=== PATIENT | male | born 1935 | race Caucasian/White ===

== ENCOUNTER 2019-09-07 09:02 | Outpatient (RCR) | payer MEDICARE, SELFPAY ==
[2019-09-07] MEDS: denosumab 120 mg SDV SUBCUT (10:11)
--- NOTE | 2019-09-07 10:15 | ONC FU_ITS ---
[facility] Patient Note Patient: Robert Gonzalez Unit #: [id number]: 1935 Dictated By: Mesfin SandovalDate of Visit: Sep 07, 2019 Onc MED Follow-Up/Prog Note Chief Complaint: Metastatic Prostrate cancer History of Present Illness: Mr. Gonzalez is a 84-year-old gentleman with recent history of urinary retention due to prostatomegaly. He required Mann catheters and further investigation- including TURSP done on 09/16/2018 confirmed prostatic adenocarcinoma [place] score 4+4, 100% involvement. CT scan of abdomen pelvis done outside at [facility] showed diffuse retroperitoneal lymphadenopathy, sclerotic bony changes, mediastinal lymphadenopathy consistent with metastatic disease and his PSA was more than 5000. As per patient he has 2 brothers with prostate cancer. He was evaluated by Dr. Maldonado in the past and underwent prostate biopsy many years ago and it was normal. Mr Gonzalez was started on bicalutamide 50 mg daily on on 09/16/2018. And also start on Flomax. He started on Zoladex and monthly Xgeva on 10/05/2018. He is tolerating ADT with Casodex/Zoladex and monthly Xgeva well. Mr. Gonzalez is here today for follow-up. He is due for monthly Xgeva. He states overall he is feeling much better than when he was here in July. He has started on a new medicine for his feet that is working wonders . He states he can walk now and has good energy. He denies any pain. He did have pneumonia after his visit here in July but that has been treated he states he is breathing good right now. He states he is always had pneumonia or bronchitis this time a year but feels good currently. His breathing is normal for him. He denies any productive cough. He had no fever or chills. He states his bowels and urination are normal for him. He denies any leg cramps or palpitations. He denies any anginal chest pain as well. His ECOG is 1. He denies any side effects from the Xgeva. Past Medical History: Chronic obstructive pulmonary disease Emphysema Heart failure History of adenomatous colon polyp Past Surgical History: Appendectomy Cataract excision Colonoscopy TRUSP Allergies: No Known Allergies. Medications: Acetaminophen 2 Tablet (of 325 mg) Oral b.i.d. PRN Albuterol Sulfate 1 puff(s) (of 108 (90 base) mcg/act) Aerosol Powder, Breath Activated Inhalation four times a day Bicalutamide 1 Tablet (of 50 mg) Oral daily Flonase 2 spray(s) (of 50 mcg/act) Suspension Nasal b.i.d. Latanoprost 1 drop(s) (of 0.005 %) Solution Ophthalmic daily prostate rye 1 Tablet daily Selenium 1 Capsule (of 200 mcg) Oral daily Tamsulosin HCl 1 Capsule (of 0.4 mg) Oral daily TraMADol HCl 1 Tablet (of 50 mg) Oral four times a day Voltaren 1 Tablet (of 75 mg) Transdermal b.i.d. sb 1 Capsule (of 50 mg) daily Family History: Mr. Gonzalez's mother at age 75: myocardial infarction. Mr. Gonzalez's father at age 91. Social History: Mr. Gonzalez is and he is retired. Mr. Gonzalez has never smoked. He has no history of drinking. Review Of Symptoms: Constitutional Denies fevers, chills, night sweats, excessive fatigue or weight loss. Allergic/Immunologic No reactions. Eyes Denies significant visual changes. No diplopia. No amaurosis. ENMT Denies changes in hearing, sore throat, mouth sores, difficulty or changes in swallowing ability, and/or sinus drainage. Endocrine No diabetes, thyroid disease or hormone replacement. Denies hot flashes or night sweats. Hematologic/Lymphatic Denies easy bruising or bleeding. The patient denies any tender or palpable lymph nodes. Respiratory Denies dyspnea on exertion, chest pain, cough or hemoptysis. Denies orthopnea. Cardiovascular Denies anginal chest pain, palpitations or orthopnea. Gastrointestinal Denies nausea, vomiting, diarrhea, GI bleeding, or constipation. Denies change in bowel habits and/or stool color, no heartburn or early satiety. Genitourinary (M) Denies hematuria, dysuria, increased frequency, urgency, hesitancy or incontinence. Musculoskeletal Denies joint pain, swelling or redness. No decreased range of motion. Integumentary Denies chronic rashes, inflammation, ulcerations or skin changes. Neurologic Denies headache, blurred vision, and no areas of focal weakness or numbness. Normal gait. No sensory problems. Psychiatric Denies insomnia, depression, sabina or mood swings. Vital Signs: Performed on Sep 07, 2019 09:32 Height - 69.00 in Weight - 172.4 lbs (HIGH) BSA - 1.94 sq.m BMI - 25.46 Temperature - 97.9 F (LOW) Pulse - 64 /min Respiration - 24 /min BP - 140/67 mm(hg) O2 Sat - 96 % Pain - 0,1 - No physically strenuous activity, but ambulatory and able to carry out light or sedentary work (e.g. office work, light house work). (ECOG) Physical Examination: Constitutional Alert, oriented, no acute distress. Skin pink, warm and dry. Head Normocephalic; atraumatic. Eyes Conjunctivae and sclerae are clear and without icterus. Pupils are reactive and equal. Neck Supple without masses or thyromegaly. No jugular venous distension. Hematologic/Lymphatic No petechiae or purpura. No tender or palpable lymph nodes in the cervical or supraclavicular areas. Respiratory Lungs are clear to auscultation without rhonchi or wheezing. Cardiovascular Regular rate and rhythm of heart without murmurs,clicks, gallops or rubs. Abdomen Non-tender, non-distended, no masses or ascites. Back/Spine Non-tender to palpation. Extremities No visible deformities, no cyanosis, clubbing or edema. Musculoskeletal No tenderness or swelling, normal range of motion without obvious weakness. Integumentary No rashes or lesions. Neurologic No sensory or motor deficits, normal cerebellar function, normal gait. Psychiatric Alert and oriented times three. Coherent speech. Verbalizes understanding of our discussions today. Laboratory:Test performed on Sep 04, 2019 10:36 Glucose 82 mg/dL BUN 17 mg/dL Creatinine 0.78 mg/dL Cr Clearance (Est) 76.17 mL/min Sodium 139 mmol/L Potassium 4.5 mmol/L Chloride 106 mmol/L CO2 25 mmol/L Calcium 7.9 mg/dL Protein, Total 6.8 g/dL Albumin 3.9 g/dL Globulin 2.9 g/dL A/G Ratio 1.3 Absolute Value Bilirubin, Total 0.4 mg/dL Alkaline Phosphatase 141 IU/L AST (SGOT) 14 IU/L ALT (SGPT) 17 IU/L PSA 395.0 ng/mL Test performed on Aug 07, 2019 09:50 WBC 5.4 10 3/uL RBC 4.59 10 6/uL HGB 13.1 g/dL HCT 41.6 % MCV 90.6 fl MCH 28.5 pg MCHC 31.5 g/dl RDW 17.1 % Platelet Count 222 10 3/cmm MPV 8.7 fl Neutrophils 3.1 10 3/uL Lymphocytes 1.7 10 3/uL Monocytes 0.3 10 3/uL Eosinophils 0.2 10 3/uL Basophils 0.0 10 3/uL Neutrophil % 57.7 % Lymphocyte % 31.1 % Monocyte % 6.1 % Eosinophil % 4.1 % Basophils % 0.6 % Test performed on Jul 07, 2019 09:05 Anion Gap 12.3 Impression: Metastatic prostrate cancer per TUR SP???biopsy done on 09/16/2018 showed prostatic adenocarcinoma involving left lateral mid, [place] score 4+4, 100% involvement, left lateral base, prostatic adenocarcinoma, [place] score 4+3, 50% involvement and left base, prostrate adenocarcinoma Jurgen score 5+4, 100% involvement, PSA more than 5000 Follow-up PSA on 11/03/[address] scan of abdomen pelvis showed diffuse retroperitoneal lymphadenopathy, sclerotic bony changes consistent with metastatic disease, mediastinal lymphadenopathy, markedly enlarged prostate Stage IV started on bicalutamide 50 mg by mouth daily on 09/16/2018 And Zoladex on 10/05/2018 And monthly Xgeva Urinary retention . now Resolved, And on Flomax. 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 Bone scan done on 04/03/2019 showed diffuse osseous metastatic disease throughout the axial and appendicular skeleton not significantly changed since 09/30/2018 but no new lesion seen Plan: 1. Proceed with scheduled Xgeva today. 2. Labs from August 2019 were reviewed in detail and discussed with Mr. Gonzalez and his family. A copy was given to them. He only had a chemistry and PSA done. His creatinine was 0.7 BUN was 17 LFTs are normal alk phos is normal at 141. His PSA was 395 compared to 256 in July 2019 but it was 417 in June 2019. It is noted that his calcium level is low at 7.9. He is not currently taking any calcium supplements. 3. I have asked him to start taking [id number] calcium with vitamin D daily as he is not have very good dairy intake. We did discuss that the Xgeva can cause low calcium. If he will take a calcium supplement regularly his calcium should correct even with the Xgeva. 4. We will plan to see him back in 4 weeks at which time he will be due for Xgeva and Zoladex. I have asked for a CBC, CMP, vitamin D level (if covered by insurance) and PSA. 5. Mr. Gonzalez was encouraged to call us in the interim should any questions or problems arise. Signed By: Mesfin Sandoval-, AOCNP Carmelita Dubrin MD <<Signature on File>>
== END 2019-09-29 23:59 | disposition home or self-care (01) ==
LOC: ONCMED 09:02
PROVIDERS: Family Provider Physician Assistant Medical; PCP Physician Assistant Medical; Visit Provider Nurse Practitioner
DX: C79.51 Secondary malignant neoplasm of bone (principal); C61 Malignant neoplasm of prostate; J43.9 Emphysema, unspecified; Z79.899 Other long term (current) drug therapy; Z79.818 Long term (current) use of other agents affecting estrogen receptors and estrogen levels
CPT/HCPCS: 96372; 99214; J0897

== ENCOUNTER 2019-10-10 05:44 | Outpatient (RCR) | payer MEDICARE, SELFPAY ==
[2019-10-10] MEDS: goserelin acetate 10.8 mg Implant IM (10:55)
[2019-10-10] MEDS: denosumab 120 mg SDV SUBCUT (12:06)
--- NOTE | 2019-10-10 13:29 | ONC FU_ITS ---
Dr. Durbin follow up note Patient: Robert Gonzalez Unit #: [id number]: 1935 Dicatated By: Carmelita Durbin M.D.Date of Visit:Oct 10, 2019 Onc Med Follow-up/Prog Note History of Present Illness: Mr. Gonzalez is a 84-year-old gentleman with recent history of urinary retention due to prostatomegaly. He required Mann catheters and further investigation- including TURSP done on 09/16/2018 confirmed prostatic adenocarcinoma [place] score 4+4, 100% involvement. CT scan of abdomen pelvis done outside at [facility] showed diffuse retroperitoneal lymphadenopathy, sclerotic bony changes, mediastinal lymphadenopathy consistent with metastatic disease and his PSA was more than 5000. As per patient he has 2 brothers with prostate cancer. He was evaluated by Dr. Maldonado in the past and underwent prostate biopsy many years ago and it was normal. Mr Gonzalez was started on bicalutamide 50 mg daily on on 09/16/2018. And also start on Flomax. He started on Zoladex and monthly Xgeva on 10/05/2018. He is tolerating ADT with Casodex/Zoladex and monthly Xgeva well. He is due for monthly Xgeva. He states overall he is feeling much better than when he was here in July. He has started on a new medicine for his feet that is working wonders . He states he can walk now and has good energy. Came for follow-up, denies any specific complaint no new bony pains, no fever or chills, no night sweats, no hot flashes, tolerating Zoladex/Casodex/Xgeva well Medications: Acetaminophen 2 Tablet (of 325 mg) Oral b.i.d. PRN, Albuterol Sulfate 1 puff(s) (of 108 (90 base) mcg/act) Aerosol Powder, Breath Activated Inhalation four times a day, Bicalutamide 1 Tablet (of 50 mg) Oral daily, Flonase 2 spray(s) (of 50 mcg/act) Suspension Nasal b.i.d., Latanoprost 1 drop(s) (of 0.005 %) Solution Ophthalmic daily, prostate rye 1 Tablet daily, Selenium 1 Capsule (of 200 mcg) Oral daily, Tamsulosin HCl 1 Capsule (of 0.4 mg) Oral daily, TraMADol HCl 1 Tablet (of 50 mg) Oral four times a day, Voltaren 1 Tablet (of 75 mg) Transdermal b.i.d., sb 1 Capsule (of 50 mg) daily Allergies: No Known Allergies. Review of Systems: Constitutional - Appetite is good and weight is stable. No fever, chills, hot flashes, or night sweats. Energy level is fair, ENMT - Positive for sinus congestion/drainage, uses Flonase. No mouth sores. No sore throat or difficulty swallowing, Hematologic/Lymphatic - Pt bruises and bleeds easily, Respiratory - Positive shortness of breath, Pt does not have portable oxygen today. Positive for productive cough. No pleuritic pain or hemoptysis, Cardiovascular - No angina pain. No palpitations, Gastrointestinal - No nausea or vomiting. No heartburn or acid reflux. No diarrhea, with occasional constipation. No blood in the stool or black stools, Genitourinary (M) - Pt has had hx of urinary retention, Musculoskeletal - No joint or bone pain, Neurologic - No headache or dizziness. No numbness/paresthesias or other focal neurologic symptoms, Psychiatric - No anxiety or depression. No insomnia. Vital Signs: Performed on Oct 10, 2019 10:06 Height - 69.00 in Weight - 169.6 lbs (LOW) BSA - 1.93 sq.m BMI - 25.05 Temperature - 97.3 F (LOW) Pulse - 62 /min Respiration - 20 /min BP - 128/69 mm(hg) O2 Sat - 94 % (LOW) Pain - 0 Performance Status: 0 - Fully active, able to carry on all predisease activities without restrictions. (ECOG) Physical Examination: ENMT - No oral exudates, ulcers, masses, thrush or mucositis. Oropharynx clear. Tongue normal, Respiratory - Lungs are clear to auscultation without rhonchi or wheezing, Cardiovascular - Regular rate and rhythm of heart, Abdomen - Non-tender, non-distended, Good bowel sounds. No guarding or rebound tenderness. No pulsatile masses, Extremities - no edema. Lab/Imaging: Test performed on Oct 03, 2019 02:52 Glucose 105 mg/dL Vitamin D (25-Hydroxy) 23 ng/mL BUN 17 mg/dL Creatinine 0.80 mg/dL Cr Clearance (Est) 76.03 mL/min Sodium 141 mmol/L Potassium 3.9 mmol/L Chloride 106 mmol/L CO2 23 mmol/L Calcium 7.8 mg/dL Protein, Total 6.2 g/dL Albumin 3.6 g/dL Globulin 2.6 g/dL A/G Ratio 1.4 Absolute Value Bilirubin, Total 0.3 mg/dL Alkaline Phosphatase 213 IU/L AST (SGOT) 15 IU/L ALT (SGPT) 13 IU/L WBC 7.4 10^9/L RBC 4.14 10^12/L HGB 11.9 g/dL HCT 36.5 % MCV 88.2 fl MCH 28.7 pg MCHC 32.6 g/dL RDW 15.3 % Platelet Count 287 10^9/L Neutrophils (Gran) 3.367 10^9/L Lymphocytes 1.4948 10^9/L Monocytes 0.6734 10^9/L Eosinophils 0.8954 10^9/L Basophils 0 10^9/L PSA 577.2 ng/mL Test performed on Aug 07, 2019 09:50 MPV 8.7 fl Neutrophil % 57.7 % Lymphocyte % 31.1 % Monocyte % 6.1 % Eosinophil % 4.1 % Basophils % 0.6 % Test performed on Jul 07, 2019 09:05 Anion Gap 12.3 Impression: Metastatic prostrate cancer per TUR SP???biopsy done on 09/16/2018 showed prostatic adenocarcinoma involving left lateral mid, Jurgen score 4+4, 100% involvement, left lateral base, prostatic adenocarcinoma, Jurgen score 4+3, 50% involvement and left base, prostrate adenocarcinoma Jurgen score 5+4, 100% involvement, PSA more than 5000 Follow-up PSA on 11/03/[address] scan of abdomen pelvis showed diffuse retroperitoneal lymphadenopathy, sclerotic bony changes consistent with metastatic disease, mediastinal lymphadenopathy, markedly enlarged prostate Stage IV started on bicalutamide 50 mg by mouth daily on 09/16/2018 And Zoladex on 10/05/2018 And monthly Xgeva Urinary retention . now Resolved, And on Flomax. 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 Bone scan done on 04/03/2019 showed diffuse osseous metastatic disease throughout the axial and appendicular skeleton not significantly changed since 09/30/2018 but no new lesion seen Plan: .Discussed with patient regarding his labs white blood count 7.4 hemoglobin 11.9 crit 36.5 platelets 287,000 CMP within normal limits PSA 577.2 compared to 359 on 09/04/2019 Clinically, patient is doing well with no new signs symptoms, tolerating Zoladex/Casodex/Xgeva well. We'll proceed with the next dose of Zoladex/Xgeva today in the meantime he will continue daily Casodex. As his follow-up lab showed further increase in PSA level indicating possibility of hormonal refractory disease, this point we'll consider adding Zytiga/prednisone to Zoladex/Casodex. And follow with PSA and testosterone level. Patient will take Zytiga 250 mg daily by mouth in the morning with low-fat breakfast and prednisone 5 mg by mouth twice a day. All the side effect possible benefits associated with Zytiga were discussed briefly further teaching will be done by chemotherapy nurse. We will obtain approval from his insurance prior to the treatment. He will return to clinic in one month with CBC CMP PSA and testosterone level and for monthly dose of Xgeva and will continue with daily Casodex and 3 monthly Zoladex. Signed By: Carmelita Durbin M.D. <<Signature on File>>
== END 2019-10-28 23:59 | disposition home or self-care (01) ==
LOC: ONCMED 05:44
PROVIDERS: Absent Provider Nurse Practitioner; Family Provider Physician Assistant Medical; PCP Physician Assistant Medical; Visit Provider Internal Medicine Hematology & Oncology
DX: C61 Malignant neoplasm of prostate (principal); C79.51 Secondary malignant neoplasm of bone; Z79.818 Long term (current) use of other agents affecting estrogen receptors and estrogen levels; Z79.899 Other long term (current) drug therapy; Z80.42 Family history of malignant neoplasm of prostate
CPT/HCPCS: 96372; 96402; 99214; J0897; J9202

== ENCOUNTER 2019-11-20 05:39 | Outpatient (RCR) | payer MEDICARE, SELFPAY ==
[2019-11-08] MEDS: denosumab 120 mg SDV SUBCUT (12:22)
--- NOTE | 2019-11-12 13:31 | ONC FU_ITS ---
Keren Stovall Patient Note Patient: Robert Gonzalez Unit #: [id number]: 1935 Dictated By: Mesfin SandovalDate of Visit: Nov 08, 2019 Onc MED Follow-Up/Prog Note Chief Complaint: Metastatic Prostate cancer History of Present Illness: Mr. Gonzalez is a 84-year-old gentleman with recent history of urinary retention due to prostatomegaly. He required Mann catheters and further investigation- including TURSP done on 09/16/2018 confirmed prostatic adenocarcinoma Jurgen score 4+4, 100% involvement. CT scan of abdomen pelvis done outside at [facility] showed diffuse retroperitoneal lymphadenopathy, sclerotic bony changes, mediastinal lymphadenopathy consistent with metastatic disease and his PSA was more than 5000. As per patient, he has 2 brothers with prostate cancer. He was evaluated by Dr. Maldonado in the past and underwent prostate biopsy many years ago and it was normal. Mr Gonzalez was started on bicalutamide 50 mg daily on on 09/16/2018. And was also started on Flomax. He started on Zoladex and monthly Xgeva on 10/05/2018. He is tolerating ADT with Casodex/Zoladex and monthly Xgeva well. At Mr. Gonzalez's follow-up visit in September 2019, Dr. Durbin had requested that we pursue obtaining Zytiga/prednisone and adding it to the Zoladex/Casodex. His PSA continued to rise at that time. In September it was 577.2. Mr. Gonzalez has not yet received the Zytiga as he has had some insurance and co-pay issues. Mr Gonzalez is here today for followup. He is due for monthly Xgeva. His Zoladex was given on October 10, 2019. Mr. Gonzalez had labs drawn at an outside lab???[facility]. He was ran through [facility]. His PSA was 1931.8 on 11/02/2019. This is a significant increase from his last PSA recorded on our chart at 577.2 on October 03, 2019. He denies any new concerns. He has had no bone pain. He states that he has not had any changes in his urinary pattern that he is aware of. He denies any pain. He states his energy is fair. His appetite is good. He denies any concerns with his bowels or bladder at this time. He states he has occasional constipation but is working that with [facility] and that seems to be working well so far. He denies any chest discomfort or palpitations. He denies any fever or chills. He states his breathing is normal for him. His ECOG is 1. Past Medical History: Chronic obstructive pulmonary disease Emphysema Heart failure History of adenomatous colon polyp Past Surgical History: Appendectomy Cataract excision Colonoscopy TRUSP Allergies: No Known Allergies. Medications: Acetaminophen 2 Tablet (of 325 mg) Oral b.i.d. PRN Albuterol Sulfate 1 puff(s) (of 108 (90 base) mcg/act) Aerosol Powder, Breath Activated Inhalation four times a day Augmentin 1 (875-125 mg) Tablet Oral b.i.d. Bicalutamide 1 Tablet (of 50 mg) Oral daily Flonase 2 spray(s) (of 50 mcg/act) Suspension Nasal b.i.d. Latanoprost 1 drop(s) (of 0.005 %) Solution Ophthalmic daily Tamsulosin HCl 1 Capsule (of 0.4 mg) Oral daily Voltaren 1 Tablet (of 75 mg) Transdermal b.i.d. Family History: Mr. Gonzalez's mother at age 75: myocardial infarction. Mr. Gonzalez's father at age 91. Social History: Mr. Gonzalez is and he is retired. Mr. Gonzalez has never smoked. He has no history of drinking. Review Of Symptoms: Constitutional Denies fevers, chills, night sweats, excessive fatigue or weight loss. Allergic/Immunologic No reactions. Eyes Denies significant visual changes. No diplopia. No amaurosis. ENMT Denies changes in hearing, sore throat, mouth sores, difficulty or changes in swallowing ability, and/or sinus drainage. Endocrine No diabetes, thyroid disease or hormone replacement. Denies hot flashes or night sweats. Hematologic/Lymphatic Denies easy bruising or bleeding. The patient denies any tender or palpable lymph nodes. Respiratory Denies dyspnea on exertion, chest pain, cough or hemoptysis. Denies orthopnea. Cardiovascular Denies anginal chest pain, palpitations or orthopnea. Gastrointestinal Denies nausea, vomiting, diarrhea, GI bleeding, or constipation. Denies change in bowel habits and/or stool color, no heartburn or early satiety. Genitourinary (M) Denies hematuria, dysuria, increased frequency, urgency, hesitancy or incontinence. Musculoskeletal Denies joint pain, swelling or redness. No decreased range of motion. Integumentary Denies chronic rashes, inflammation, ulcerations or skin changes. Neurologic Denies headache, blurred vision, and no areas of focal weakness or numbness. Normal gait. No sensory problems. Psychiatric Denies insomnia, depression, sabina or mood swings. Vital Signs: Performed on Nov 08, 2019 11:39 Height - 69.00 in Weight - 174.6 lbs (HIGH) BSA - 1.95 sq.m BMI - 25.78 Temperature - 97.3 F (LOW) Pulse - 75 /min Respiration - 20 /min BP - 127/59 mm(hg) O2 Sat - 95 % (LOW) Pain - 0 Fatigue - 4,0 - Fully active, able to carry on all predisease activities without restrictions. (ECOG) Physical Examination: Constitutional Alert, oriented, no acute distress. Skin pink, warm and dry. Head Normocephalic; atraumatic. Eyes Conjunctivae and sclerae are clear and without icterus. Pupils are reactive and equal. Neck Supple without masses or thyromegaly. No jugular venous distension. Hematologic/Lymphatic No petechiae or purpura. No tender or palpable lymph nodes in the cervical or supraclavicular areas. Respiratory Lungs are clear to auscultation without rhonchi or wheezing. Cardiovascular Regular rate and rhythm of heart without murmurs,clicks, gallops or rubs. Abdomen Non-tender, non-distended, no masses or ascites. Back/Spine Non-tender to palpation. Extremities No visible deformities, no cyanosis, clubbing or edema. Musculoskeletal No tenderness or swelling, normal range of motion without obvious weakness. Integumentary No rashes or lesions. Neurologic No sensory or motor deficits, normal cerebellar function, normal gait. Psychiatric Alert and oriented times three. Coherent speech. Verbalizes understanding of our discussions today. Laboratory:Test performed on Nov 08, 2019 12:20 PSA 2610.00 ng/mL Test performed on Nov 01, 2019 05:03 Glucose 117 mg/dL BUN 24 mg/dL Creatinine 0.85 mg/dL Cr Clearance (Est) 70.39 mL/min Sodium 139 mmol/L Potassium 4.9 mmol/L Chloride 105 mmol/L CO2 23 mmol/L Calcium 9.1 mg/dL Protein, Total 7.0 g/dL Albumin 4.3 g/dL Globulin 2.7 g/dL Bilirubin, Total 0.4 mg/dL Alkaline Phosphatase 417 IU/L AST (SGOT) 23 IU/L ALT (SGPT) 22 IU/L WBC 6.1 10^9/L RBC 4.38 10^12/L HGB 13.1 g/dL HCT 39.1 % MCV 89.3 fl MCH 29.9 pg MCHC 33.5 g/dL RDW 15.9 % Platelet Count 271 10^9/L MPV 9.7 fL Neutrophils (Gran) 3898 10^9/L Lymphocytes 1257 10^9/L Monocytes 250 10^9/L Eosinophils 0 10^9/L Basophils 0 10^9/L Manual Lymphocytes 20.6 % Manual Monocytes 4.1 % Manual Eosinophils 0 % Manual Basophils 0 % Test performed on Oct 03, 2019 02:52 Vitamin D (25-Hydroxy) 23 ng/mL A/G Ratio 1.4 Absolute Value Impression: Metastatic prostrate cancer per TUR SP???biopsy done on 09/16/2018 showed prostatic adenocarcinoma involving left lateral mid, Home score 4+4, 100% involvement, left lateral base, prostatic adenocarcinoma, Home score 4+3, 50% involvement and left base, prostrate adenocarcinoma Home score 5+4, 100% involvement, PSA more than 5000 Follow-up PSA on 11/03/[address] scan of abdomen pelvis showed diffuse retroperitoneal lymphadenopathy, sclerotic bony changes consistent with metastatic disease, mediastinal lymphadenopathy, markedly enlarged prostate Stage IV started on bicalutamide 50 mg by mouth daily on 09/16/2018 And Zoladex on 10/05/2018 And monthly Xgeva Urinary retention . now Resolved, And on Flomax. 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 Bone scan done on 04/03/2019 showed diffuse osseous metastatic disease throughout the axial and appendicular skeleton not significantly changed since 09/30/2018 but no new lesion seen. At Mr. Gonzalez's follow-up visit in September 2019, Dr. Durbin had requested that we pursue obtaining Zytiga/prednisone and adding it to the Zoladex/Casodex. His PSA continued to rise at that time. In September it was 577.2. Mr. Gonzalez has not yet received the Zytiga as he has had some insurance and co-pay issues. Plan: 1. Proceed with Xgeva today as scheduled. 2. Repeat PSA as his PSA on November 01, 2019 was 1931.8. (In September 2019 was 577.2). His follow-up PSA from today was 2610. It is also noted that his ALK on the November 01, 2019 labs was 417. 3. I requested a PET CT imaging for restaging and hopefully we can get that this Wednesday. He will need the standard PET CT. The last CT scan imaging we have is from March 2019 of the abdomen and pelvis. Those this will need to be made available for comparison. 4. We will plan to see him back after the PET results are obtained. At that time we will determine whether to continue with the Zytiga or consider changing him to docetaxel. If he has systemic disease less likely recommended will be the IV treatment. If his disease is continued to be localized he can pursue Zytiga. 5. I have discussed this with Mr. Gonzalez and his family in detail and they verbalized understanding. He will proceed with Xgeva today and then we will set him up for the PET CT on Wednesday and call him with results and follow-up instructions on Wednesday or Wednesday of next week. 6. Mr. Gonzalez was instructed to contact us in the interim should questions or problems arise. 8. We need to verify that he is actually taking vitamin D he was vitamin D deficient on October 03, 2019. Need make sure that he is taking vitamin D replacement. He may need calcium as well depending on the PET/CT results. Signed By: Mesfin Sandoval-, C.S. MOTT CHILDREN'S HOSPITALAsiya Durbin MD <<Signature on File>>
--- NOTE | 2019-11-21 17:06 | ONC FU_ITS ---
Dr. Durbin follow up note Patient: Robert Gonzalez Unit #: [id number]: 1935 Dicatated By: Carmelita Durbin M.D.Date of Visit:Nov 20, 2019 Onc Med Follow-up/Prog Note History of Present Illness: Mr. Gonzalez is a 84-year-old gentleman with recent history of urinary retention due to prostatomegaly. He required Mann catheters and further investigation- including TURSP done on 09/16/2018 confirmed prostatic adenocarcinoma [place] score 4+4, 100% involvement. CT scan of abdomen pelvis done outside at [facility] showed diffuse retroperitoneal lymphadenopathy, sclerotic bony changes, mediastinal lymphadenopathy consistent with metastatic disease and his PSA was more than 5000. As per patient, he has 2 brothers with prostate cancer. He was evaluated by Dr. Maldonado in the past and underwent prostate biopsy many years ago and it was normal. Mr Gonzalez was started on bicalutamide 50 mg daily on on 09/16/2018. And was also started on Flomax. He started on Zoladex and monthly Xgeva on 10/05/2018. He is tolerating ADT with Casodex/Zoladex and monthly Xgeva well. At Mr. Gonzalez's follow-up visit in September 2019, had requested that we pursue obtaining Zytiga/prednisone and adding it to the Zoladex/Casodex. His PSA continued to rise at that time. In September it was 577.2. His Zoladex was given on October 10, 2019. Mr. Gonzalez had labs drawn at an outside lab???[facility]. He was ran through [facility]. His PSA was 1931.8 on 11/02/2019. This is a significant increase from his last PSA recorded on our chart at 577.2 on October 03, 2019.follow-up CT PET scan done on 11/11/2019 showed diffuse sclerotic osseous changes are FDG negative, consistent with sterilize malignancy. Multiple FDG positive bilateral pelvic nodes consistent with malignancy index node in the right inguinal territory measure 1.9 x 2.3 cm with SUV of 5.7. A right internal iliac lymph node measured 1.8 cm with SUV of 3.3. Other nodes are mild but suspicious FDG uptake are noted in the right common iliac, left external iliac, left obturator territories.. Questionable 1.8 cm FDG negative left periaortic node..whereas CT scan of abdomen pelvis at the time of diagnosis showed diffuse retroperitoneal lymphadenopathy mediastinal lymphadenopathy and PSA was more than 5000. Came for follow-up, denies any specific complaints, no nausea vomiting no fever no chills no melena hematochezia no new bony pains no dysuria or hematuria occasionally hot flashes otherwise tolerating ADT with Zoladex well.Patient said he just received Zytiga in the mail and about to start taking it Medications: Acetaminophen 2 Tablet (of 325 mg) Oral b.i.d. PRN, Albuterol Sulfate 1 puff(s) (of 108 (90 base) mcg/act) Aerosol Powder, Breath Activated Inhalation four times a day, Augmentin 1 (875-125 mg) Tablet Oral b.i.d., Bicalutamide 1 Tablet (of 50 mg) Oral daily, Flonase 2 spray(s) (of 50 mcg/act) Suspension Nasal b.i.d., Latanoprost 1 drop(s) (of 0.005 %) Solution Ophthalmic daily, predniSONE 1 Tablet (of 10 mg) Oral daily, Tamsulosin HCl 1 Capsule (of 0.4 mg) Oral daily, Voltaren 1 Tablet (of 75 mg) Transdermal b.i.d. Allergies: No Known Allergies. Review of Systems: Constitutional - Appetite is good and weight is stable. No fever, chills, hot flashes, or night sweats. Energy level is fair, ENMT - Positive for sinus congestion/drainage, uses Flonase. No mouth sores. No sore throat or difficulty swallowing, Hematologic/Lymphatic - Pt bruises and bleeds easily, Respiratory - Positive shortness of breath, Pt does not have portable oxygen today. Positive for productive cough. No pleuritic pain or hemoptysis, Cardiovascular - No angina pain. No palpitations, Gastrointestinal - No nausea or vomiting. No heartburn or acid reflux. No diarrhea, with occasional constipation. No blood in the stool or black stools, Genitourinary (M) - Pt has had hx of urinary retention, Musculoskeletal - No joint or bone pain, Neurologic - No headache or dizziness. No numbness/paresthesias or other focal neurologic symptoms, Psychiatric - No anxiety or depression. No insomnia. Vital Signs: Performed on Nov 20, 2019 08:47 Height - 69.00 in Weight - 172.6 lbs (LOW) BSA - 1.94 sq.m BMI - 25.49 Temperature - 98.3 F (LOW) Pulse - 74 /min Respiration - 18 /min BP - 124/63 mm(hg) O2 Sat - 95 % (LOW) Pain - 0 Performance Status: 0 - Fully active, able to carry on all predisease activities without restrictions. (ECOG) Physical Examination: ENMT - No oral exudates, ulcers, masses, thrush or mucositis. Oropharynx clear. Tongue normal, Respiratory - Lungs are clear to auscultation without rhonchi or wheezing, Cardiovascular - Regular rate and rhythm of heart, Abdomen - Non-tender, non-distended, Good bowel sounds. No guarding or rebound tenderness. No pulsatile masses, Extremities - no edema. Lab/Imaging: Test performed on Nov 08, 2019 12:20 PSA 2610.00 ng/mL Test performed on Nov 01, 2019 05:03 Glucose 117 mg/dL BUN 24 mg/dL Creatinine 0.85 mg/dL Cr Clearance (Est) 70.39 mL/min Sodium 139 mmol/L Potassium 4.9 mmol/L Chloride 105 mmol/L CO2 23 mmol/L Calcium 9.1 mg/dL Protein, Total 7.0 g/dL Albumin 4.3 g/dL Globulin 2.7 g/dL Bilirubin, Total 0.4 mg/dL Alkaline Phosphatase 417 IU/L AST (SGOT) 23 IU/L ALT (SGPT) 22 IU/L WBC 6.1 10^9/L RBC 4.38 10^12/L HGB 13.1 g/dL HCT 39.1 % MCV 89.3 fl MCH 29.9 pg MCHC 33.5 g/dL RDW 15.9 % Platelet Count 271 10^9/L MPV 9.7 fL Neutrophils (Gran) 3898 10^9/L Lymphocytes 1257 10^9/L Monocytes 250 10^9/L Eosinophils 0 10^9/L Basophils 0 10^9/L Manual Lymphocytes 20.6 % Manual Monocytes 4.1 % Manual Eosinophils 0 % Manual Basophils 0 % Test performed on Oct 03, 2019 02:52 Vitamin D (25-Hydroxy) 23 ng/mL A/G Ratio 1.4 Absolute Value Test performed on Aug 07, 2019 09:50 Neutrophil % 57.7 % Lymphocyte % 31.1 % Monocyte % 6.1 % Eosinophil % 4.1 % Basophils % 0.6 % Test performed on Jul 07, 2019 09:05 Anion Gap 12.3 Impression: Metastatic prostrate cancer per TUR SP???biopsy done on 09/16/2018 showed prostatic adenocarcinoma involving left lateral mid, Jurgen score 4+4, 100% involvement, left lateral base, prostatic adenocarcinoma, [place] score 4+3, 50% involvement and left base, prostrate adenocarcinoma [place] score 5+4, 100% involvement, PSA more than 5000 Follow-up PSA on 11/03/[address] scan of abdomen pelvis showed diffuse retroperitoneal lymphadenopathy, sclerotic bony changes consistent with metastatic disease, mediastinal lymphadenopathy, markedly enlarged prostate Stage IV started on bicalutamide 50 mg by mouth daily on 09/16/2018 And Zoladex on 10/05/2018 And monthly Xgeva Urinary retention . now Resolved, And on Flomax. 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 Bone scan done on 04/03/2019 showed diffuse osseous metastatic disease throughout the axial and appendicular skeleton not significantly changed since 09/30/2018 but no new lesion seen. At Mr. Gonzalez's follow-up visit in September 2019, Dr. Durbin had requested that we pursue obtaining Zytiga/prednisone and adding it to the Zoladex/Casodex. His PSA continued to rise at that time. In September it was 577.2. Mr. Gonzalez has not yet received the Zytiga as he has had some insurance and co-pay issues. Plan: Discussed with patient regarding his CT PET scan findings which interestingly shows significant improvement when compared with CT scan of chest abdomen pelvis done at the time of diagnosis now CT PET scan shows sterilized osseous metastatic disease e.g. FDG negative and few pelvic lymph nodes and only questionable lymph node in left para-aortic area. But concern is progressive PSA and recently decided to add Zytiga/prednisone which patient received recently and now about to start taking it along with 3 monthly Zoladex and as his CT PET scan shows no bone activities so we will changes Xgeva dose to every 3 months along with Zoladex so patient will return to clinic in the December 2023 Zoladex and Xgeva. And patient starting his Zytiga/prednisone now so we will repeat his PSA and testosterone level in a month. Signed By: Carmelita Durbin M.D. <<Signature on File>>
== END 2019-11-28 23:59 | disposition home or self-care (01) ==
LOC: ONCMED 05:39
PROVIDERS: Absent Provider Nurse Practitioner; Family Provider Physician Assistant Medical; PCP Physician Assistant Medical; Visit Provider Internal Medicine Hematology & Oncology
DX: C79.51 Secondary malignant neoplasm of bone (principal); C61 Malignant neoplasm of prostate; C77.8 Secondary and unspecified malignant neoplasm of lymph nodes of multiple regions; K59.00 Constipation, unspecified; J43.9 Emphysema, unspecified; I50.9 Heart failure, unspecified; Z79.899 Other long term (current) drug therapy; Z79.818 Long term (current) use of other agents affecting estrogen receptors and estrogen levels; Z79.82 Long term (current) use of aspirin; Z79.51 Long term (current) use of inhaled steroids
CPT/HCPCS: 36415; 84153; 96372; 99214; J0897

== ENCOUNTER 2020-01-01 17:43 | Inpatient (IN) | payer MEDICARE, SELFPAY ==
[2020-01-01] VITALS (7 sets, daily range): BP systolic 119–147; BP diastolic 63–70; PULSE 68–88; RESP 14–24; TEMP 36.6; O2SAT 93–98; BMI 24.3
--- NOTE | 2020-01-01 17:59 | ECG_ITS ---
Measurements Intervals [place] Rate: 74 P: 72 OR: 210 QRS: 6 QRSD: 90 T: 72 QT: 352 QTc: 392 SINUS RHYTHM WITH FIRST DEGREE AV BLOCK WITH OCCASIONAL VENTRICULAR PREMATURE COM COMPLEXES WITH MARKED RHYTHM IRREGULARITY, POSSIB CRITICAL TEST RESULT No previous ECG available for comparison Electronically Signed On 01-02-2020 16:55:39 CDT by Cristal Haley M.D. [email or web address]
--- NOTE | 2020-01-01 17:59 | XR_ITS ---
WS: [id number] XR chest 1V portable [id number] REASON FOR EXAM: sob FINDINGS: Lung morales are hyper aerated consistent with chronic obstructive pulmonary disease. The heart is not enlarged. There is arteriosclerotic changes seen in the arch the aorta. No pneumonia, pleural effusion, pulmonary edema, or mass effect. No osseous abnormalities. XR/XR chest 1V portable [id number] IMPRESSION: Chronic obstructive pulmonary disease.
--- NOTE | 2020-01-01 18:13 | USCV_ITS ---
Carlos Robert Age: 84 Gender: M : 1935 Exam Date: 01/01/2020 19:57 Ordering Phys: Melissa Terry DO Technologist: Eugenio Gao [place]am [place] [facility] [place] Indication: RT LEG PAIN AND SWELLING HISTORY: Lower extremity edema. PROCEDURES: Venous duplex imaging was performed in only the right lower extremity. The following venous structures were evaluated: common femoral vein, profunda vein, proximal portion of the greater saphenous vein, superficial femoral vein, and the popliteal vein. In addition, the posterior tibial and peroneal trunk were evaluated. On the right side, the common femoral, superficial femoral, profunda femoral, popliteal, posterior tibial, greater saphenous veins and the peroneal trunk were identified and interrogated in the standard fashion. These veins were found to be easily compressible with spontaneous blood flow. No evidence of insufficiency or thrombus noted. FINDINGS: Normal 2-D Doppler and augmentation and compressibility throughout the lower extremity venous structures. Additional imaging through the proximal calf veins also reveals no thrombus. Limited evaluation of the greater saphenous vein is patent with no thrombus.. The veins were found to be easily compressible with spontaneous blood flow. Non pulsatile flow pattern. CONCLUSIONS No evidence of DVT in the above-mentioned identifiable veins. Dr Cristal Haley MD [facility] (Electronically Signed) Final Date: 02 Jan 2020 15:39 S
--- NOTE | 2020-01-01 18:14 | US_ITS ---
WS: [id number] ABDOMINAL ULTRASOUND REASON FOR EXAM: Abdominal Pain TECHNIQUE: Grayscale and Doppler ultrasound examination of the abdomen. FINDINGS: Pancreas: Within normal limits Abdominal aorta and IVC: Within normal limits Liver: Liver measures 12.9 cm in length. Coarse reflective pattern in the liver seen suggesting fatty infiltration. Multiple hypodense lesions are seen in the liver. The largest measures 2.41 cm. Gallbladder: Gallbladder wall thickness measures 0.2 cm. Multiple calcified gallstones noted. Left kidney: Left kidney measures 11.5 cm x 6.2 cm x 6.0 cm. The left kidney shows a smooth appearing lesions consistent with a benign cyst measures 3.04 cm. Right kidney: Right kidney measures 10.8 cm x 5.2 cm x 4.6 cm. Cysts are seen in the lateral right ki dney. Spleen: Spleen measures 13.2 cm US/US abdomen complete* [id number] IMPRESSION: Multiple cholelithiasis. Multiple cysts in the liver. Fatty infiltration of the liver. Cyst in both kidneys.
[2020-01-01] MEDS: ondansetron 2 mg/ML SDV 2 mL 4 MG IVP (18:23)
[2020-01-01] MEDS: morphine 4 mg/mL SDV 1 mL 2 MG IVP (18:23)
[2020-01-01 18:43] LABS: Hematocrit 34.8 % (42.0-52.0); Hemoglobin 10.6 g/dL (11.7-16.6); Mean Corpuscular HGB Conc 30.5 g/dL (30.0-36.0); Mean Corpuscular Hemoglobin 30.4 pg (28.0-34.0); Mean Corpuscular Volume 99.7 fL (80-94); Mean Platelet Volume 9.4 fL (7.4-10.4); Nucleated Red Blood Cells # 1.3 /100WBC; Nucleated Red Blood Cells % 21.2 %; Platelet Count 48 10^3/cmm (130-400); Red Blood Count 3.49 10^6/uL (4.1-5.3); Red Cell Distribution Width 19.2 % (12.1-15.1); White Blood Count 5.9 10^3/uL (4.0-10.0)
[2020-01-01 18:49] LABS: INR 1.03 (0.8-1.2)
[2020-01-01 18:58] LABS: Troponin(5th) Baseline 36 ng/mL (0-15)
[2020-01-01 19:05] LABS: Slide Review Slide Review Perform
[2020-01-01 19:08] LABS: Alanine Aminotransferase 79 U/L (0-41); Albumin Level 3.6 g/dL (3.5-5.2); Alkaline Phosphatase 1071 IU/L (40-130); Anion Gap 15.8 (5-19); Aspartate Amino Transferase 161 U/L (0-40); Blood Urea Nitrogen 40 mg/dL (8-23); Calcium 8.5 mg/dL (8.5-10.5); Carbon Dioxide 24 mmol/L (22-29); Chloride 104 mmol/L (98-107); Globulin 2.8 g/dL (1.3-4.6); Glucose 118 mg/dL (65-115); NT Pro B Type Natriuretic Pept 1028 pg/mL (0-450); Osmolality Calculated 287 mOsm/kg (285-295); Potassium 4.8 mmol/L (3.5-5.1); Sodium 139 mmol/L (136-145); Total Protein 6.4 g/dL (6.6-8.7)
[2020-01-01 19:09] LABS: ABG PCO2 39.6 mmHg (35-45); ABG PH Result 7.41 (7.35-7.45); Arterial Blood Gas Hematocrit 32.4 % (42-52); Base Excess ABG 0.4 mmol/L (-2.0-2.0); Blood Gas Allen Test Pos; Blood Gas Sample Type Arterial; HCO3 ABG 25.1 mmol/L (22-26); PO2 ABG 85.1 mmHg (80.0-100.0)
[2020-01-01 19:16] LABS: Absolute Segmented Neutrophil 2.5 10/cmm (1.6-7.1); Band Neutrophils Absolute 0.9 10^3/cmm (0.0-1.2); Corrected White Blood Count 4.5 10^3/cmm (4.8-10.8); Eosinophils 1 %; Lymphocytes 24 %; Monocytes Absolute 0.4 10^3/cmm (0.1-0.6); Segmented Neutrophils 44 %; Total Cells Counted 100 (0-100)
[2020-01-01 19:17] LABS: Platelet Estimate Decreased (Normal)
[2020-01-01 19:18] LABS: Anisocytosis 2+; Macrocytosis 1+; Microcytosis 1+; Polychromasia 1+
--- NOTE | 2020-01-01 19:19 | W.ED.SOB ---
HPI - SOB/Dyspnea General: Chief Complaint: Shortness of Breath/Dyspnea Stated Complaint: abd pain, sob Time Seen by Provider: 01/01/20 17:59 History of Present Illness: HPI Narrative: Mr. Gonzalez is a nice 84-year-old male who comes in complaining of multiple complaints. When asked what his greatest complaint is he says that of COPD. He states he has a cough productive of yellow sputum. He has had to increase his oxygen that he uses at home intermittently at home as well. He also complains of right leg pain more so from the knee down to his foot. He does not believe he had an injury. He also complains of diffuse abdominal pain. He does relate he was recently seen at [facility] emergency department and was placed on antibiotics for his breathing at that time. Associated symptoms: Reports abdominal pain and extremity pain; Deny chest congestion, chest pain, diaphoresis, dizziness, fever(s), hemoptysis, nausea, orthopnea, palpitations, polydipsia, syncope or vomiting Review of Systems General: Reports: other (negative unless marked) Const: Denies: fever, chills, body aches, fatigue, malaise or diaphoresis Eyes: Denies: change in vision or blurry vision ENMT: Denies: throat pain, painful swallowing, hoarseness, ear pain, ear discharge, Change in hearing or nasal discharge Card: Denies: chest pain, palpitations, irregular heart rhythm, syncope, pre-syncope, shortness of breath on exertion or shortness of breath when lying down Resp: Reports: shortness of breath and productive cough; Denies: non-productive cough, wheezing, coughing up blood or chest congestion GI: Reports: abdominal pain; Denies: nausea, vomiting, vomiting blood, coffee grounds in vomit, diarrhea, constipation, cramping, blood in stool or black tarry stool : Denies: flank pain, difficulty urinating, painful urination, urinary frequency, urinary urgency, decreased urine ouput, urinary incontinence or blood in urine Musc: Reports: extremity pain; Denies: neck pain, back pain, extremity swelling, joint pain, joint swelling, joint warmth or joint stiffness Skin/Breast: Denies: rash, skin tenderness or yellow skin Neuro: Denies: headache, numbness in extremities, weakness in extremities, changes in sensation, lack of coordination, difficulty walking, dizziness, vertigo or confusion Endo: Denies: excessive thirst, tired all the time, cold intolerance, excessive sweating, flushing or hot flashes Eduardo/Lymph: Denies: easy bruising, easy bleeding, petechiae or enlarged lymph nodes All/Imm: Denies: hives, throat swelling, tongue swelling, facial swelling or acute wheezing PFSH ED PFSH: Medical History Abnormal colonoscopy Adenomatous polyp CHF (congestive heart failure) COPD (chronic obstructive pulmonary disease) Gallstone Other specified cardiac arrhythmias Prostate cancer Diagnosed August 2018 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 Diffuse retroperitoneal lymphadenopathy, sclerotic bony changes, mediastinal lymphadenopathy, [place] score 4+4, metastatic disease throughout axial and appendicular skeleton Surgical History History of appendectomy History of cataract surgery S/P TURP Family History Mother CAD (coronary artery disease) Due to MA age 75 Social History Smoking and tobacco status: former smoker Alcohol intake: never Substance/Drug Use: never Household members: family Housing: House Physical Exam Const: COMMON NORMALS: no limitations, healthy appearing and well nourished EXAM LIMITATIONS: no altered mental status GENERAL APPEARANCE: cooperative, well kempt and well developed ORIENTATION/CONSCIOUSNESS: Yes awake HENMT: COMMON NORMALS: normocephalic, head/scalp atraumatic, hearing grossly normal bilaterally, external ears normal, EAC's normal, external nose normal and moist oral mucous membranes HEAD & SCALP: normal to inspection, normocephalic and atraumatic FACE & SINUS: normal facial exam and face symmetric NOSE: external nose normal and nares normal EXTERNAL EAR: Yes external ears normal EXTERNAL AUDITORY CANAL: EAC's normal MOUTH: oral and palatal mucosa normal and tongue normal Eye: COMMON NORMALS: PERRL, EOMs intact bilaterally, conjunctivae normal and no scleral icterus GENERAL EYE: normal appearance of both eyes and normal light reflex CONJUNCTIVA: Yes conjunctivae normal SCLERA: sclerae normal CORNEA: Yes corneas normal PUPIL: Yes PERRL DIRECT OPHTHALMOSCOPY: Yes normal light reflex Neck/C-Spine: COMMON NORMALS: full ROM, no lymphadenopathy, supple, no meningeal signs and no JVD GENERAL: Yes normal visual inspection and Yes trachea midline CERVICAL SPINE: Yes cervical ROM normal Chest: COMMONS NORMALS: inspection of chest normal and palpation of chest normal Resp: EFFORT & INSPECTION: Yes able to speak in complete sentences and Yes uses accessory muscles AUSCULTATION: rales, rhonchi and wheezes Cardio: COMMON NORMALS: no JVD, regular rate, regular rhythm, S1 normal heart sound, S2 normal heart sound, no gallops, no clicks, no murmurs and no rub JUGULAR VENOUS DISTENTION: no JVD RATE: regular rate RHYTHM: regular rhythm HEART SOUNDS: S1 normal and S2 normal GI: COMMON NORMALS: soft to palpation, non-tender, no hepatosplenomegaly and no masses INSPECTION: Yes normal to inspection PALPATION: Yes soft and Yes no hepatosplenomegaly : COMMON NORMALS: Yes no CVA tenderness BLADDER/KIDNEY EXAM: Yes no CVA tenderness Back/Pelvis: COMMON NORMALS: no CVA tenderness, thoracic and lumbar spine normal to inspection, no thoracic nor lumbar tenderness and thoraco-lumbar ROM normal Extremity: COMMON NORMALS: normal to inspection, full ROM, normal capillary refill, no joint enlargement, no clubbing, cyanosis or edema and no calf tenderness Neuro: COMMON NORMALS: CN's II-XII intact bilaterally, moves all extremities, no focal motor deficits and no sensory deficits noted MENINGEAL SIGNS: Yes no meningeal signs Psych: COMMON NORMALS: mental status grossly normal, thought process normal, cooperative, affect normal, speech normal and activity/motor behavior normal APPEARANCE: Yes well kempt SPEECH: Yes normal speech THOUGHT PROCESS: normal thought process Skin: COMMON NORMALS: no rashes or lesions noted, skin turgor normal, no jaundice, no petechiae and no mottling GENERAL SKIN EXAM: no rashes or lesions noted and turgor normal Course Vital Signs: Vital signs: Vital Signs Temperature 97.8 F 01/01/20 23:38 Pulse Rate 70 01/01/20 23:38 Respiratory Rate 18 01/01/20 23:38 Blood Pressure 119/70 01/01/20 23:38 Pulse Oximetry 96 01/01/20 23:38 MDM - SOB/Dyspnea MDM Narrative: Medical decision making narrative: The case was reviewed with Dr. Joseph, he will admit orders left. He would like the patient to go ahead and receive 1 dose of Lovenox and he will determine whether to keep the patient on indefinitely. He is okay with holding on COVID testing. Lab Data: Labs: Lab Results 01/01/20 01/01/20 01/01/20 Range/Units 00:45 18:05 18:05 WBC 5.9 (4.0-10.0) 10^3/ uL Corrected WBC 4.5 L (4.8-10.8) 10^3/ cmm RBC 3.49 L (4.1-5.3) 10^6/u L Hgb 10.6 L (11.7-16.6) g/dL Hct 34.8 L (42.0-52.0) % MCV 99.7 H (80-94) fL MCH 30.4 (28.0-34.0) pg MCHC 30.5 (30.0-36.0) g/dL RDW 19.2 H (12.1-15.1) % Plt Count 48 L (130-400) 10^3/c mm MPV 9.4 (7.4-10.4) fL Nucleated RBC % (a uto) 21.2 % Total Counted 100 (0-100) Segmented Neutroph ils 44 % Band Neutrophils 15.0 % Lymphocytes (Manua l) 24 % Monocytes (Manual) 6.0 % Absolute Monocytes 0.4 (0.1-0.6) 10^3/c mm Eosinophils (Manua l) 1 % Absolute Eosinophi ls 0.0 (0.0-0.7) 10^3/c mm Metamyelocytes 6.0 % Myelocytes 4.0 % Nucleated RBCs 30.0 H (0-1) /100WBC Nucleated RBCs # 1.3 /100WBC Platelet Estimate Decreased (Normal) Polychromasia 1+ H Anisocytosis 2+ H Microcytosis 1+ H Macrocytosis 1+ H PT 13.80 H (10.5-13.3) SECO NDS INR 1.03 (0.8-1.2) D-Dimer (0-0.59) ug/mIFE U Specimen Type ABG pH (7.35-7.45) ABG pCO2 (35-45) mmHg ABG pO2 (80.0-100.0) mmH g ABG HCO3 (22-26) mmol/L ABG Base Excess (-2.0-2.0) mmol/ L Emil Test Hematocrit (42-52) % Graphics Programmer ID Sodium (136-145) mmol/L Potassium (3.5-5.1) mmol/L Chloride (98-107) mmol/L Carbon Dioxide (22-29) mmol/L Anion Gap (5-19) BUN (8-23) mg/dL Creatinine (0.7-1.2) mg/dL Glucose (65-115) mg/dL Calculated Osmolal ity (285-295) mOsm/k g Lactic Acid (0.5-2.2) mmol/L Lactic Acid (Sepsi s) 1.2 (0.5-2.2) mmol/L Calcium (8.5-10.5) mg/dL Total Bilirubin (0.15-1.2) mg/dL AST (0-40) U/L ALT (0-41) U/L Alkaline Phosphata se (40-130) IU/L Troponin T Baselin e (0-15) ng/mL Troponin T 120 Min santosh (0-15) ng/mL Delta Troponin T (0-10) ABS# NT-Pro-B Natriuret Pep (0-450) pg/mL Total Protein (6.6-8.7) g/dL Albumin (3.5-5.2) g/dL Globulin (1.3-4.6) g/dL Urine Color (Yellow) Urine Appearance (CLEAR) Urine pH (5-7) Ur Specific Gravit y (1.005-1.030) Urine Protein (Negative) Urine Glucose (UA) (Normal) Urine Ketones (Negative) Urine Blood (Negative) Urine Nitrate (Negative) Urine Bilirubin (NEGATIVE) Urine Urobilinogen (Negative) mg/dL Ur Leukocyte Clau ase (Negative) Urine RBC (0-2) /hpf Urine WBC (0-5) /hpf Ur Squamous Epith Cells (0-5) Urine Bacteria (NONE) Hyaline Casts Fine Granular Cast s /lpf Coarse Granular Ca sts /lpf 01/01/20 01/01/20 01/01/20 Range/Units 18:05 18:05 18:05 WBC (4.0-10.0) 10^3/ uL Corrected WBC (4.8-10.8) 10^3/ cmm RBC (4.1-5.3) 10^6/u L Hgb (11.7-16.6) g/dL Hct (42.0-52.0) % MCV (80-94) fL MCH (28.0-34.0) pg MCHC (30.0-36.0) g/dL RDW (12.1-15.1) % Plt Count (130-400) 10^3/c mm MPV (7.4-10.4) fL Nucleated RBC % (a uto) % Total Counted (0-100) Segmented Neutroph ils % Band Neutrophils % Lymphocytes (Manua l) % Monocytes (Manual) % Absolute Monocytes (0.1-0.6) 10^3/c mm Eosinophils (Manua l) % Absolute Eosinophi ls (0.0-0.7) 10^3/c mm Metamyelocytes % Myelocytes % Nucleated RBCs (0-1) /100WBC Nucleated RBCs # /100WBC Platelet Estimate (Normal) Polychromasia Anisocytosis Microcytosis Macrocytosis PT (10.5-13.3) SECO NDS INR (0.8-1.2) D-Dimer 11.76 H (0-0.59) ug/mIFE U Specimen Type ABG pH (7.35-7.45) ABG pCO2 (35-45) mmHg ABG pO2 (80.0-100.0) mmH g ABG HCO3 (22-26) mmol/L ABG Base Excess (-2.0-2.0) mmol/ L Emil Test Hematocrit (42-52) % Graphics Programmer ID Sodium 139 (136-145) mmol/L Potassium 4.8 (3.5-5.1) mmol/L Chloride 104 (98-107) mmol/L Carbon Dioxide 24 (22-29) mmol/L Anion Gap 15.8 (5-19) BUN 40 H (8-23) mg/dL Creatinine 1.3 H (0.7-1.2) mg/dL Glucose 118 H (65-115) mg/dL Calculated Osmolal ity 287 (285-295) mOsm/k g Lactic Acid (0.5-2.2) mmol/L Lactic Acid (Sepsi s) (0.5-2.2) mmol/L Calcium 8.5 (8.5-10.5) mg/dL Total Bilirubin 1.0 (0.15-1.2) mg/dL AST 161 H (0-40) U/L ALT 79 H (0-41) U/L Alkaline Phosphata se 1071 H* (40-130) IU/L Troponin T Baselin e 36 H (0-15) ng/mL Troponin T 120 Min santosh (0-15) ng/mL Delta Troponin T (0-10) ABS# NT-Pro-B Natriuret Pep 1028 H (0-450) pg/mL Total Protein 6.4 L (6.6-8.7) g/dL Albumin 3.6 (3.5-5.2) g/dL Globulin 2.8 (1.3-4.6) g/dL Urine Color (Yellow) Urine Appearance (CLEAR) Urine pH (5-7) Ur Specific Gravit y (1.005-1.030) Urine Protein (Negative) Urine Glucose (UA) (Normal) Urine Ketones (Negative) Urine Blood (Negative) Urine Nitrate (Negative) Urine Bilirubin (NEGATIVE) Urine Urobilinogen (Negative) mg/dL Ur Leukocyte Clau ase (Negative) Urine RBC (0-2) /hpf Urine WBC (0-5) /hpf Ur Squamous Epith Cells (0-5) Urine Bacteria (NONE) Hyaline Casts Fine Granular Cast s /lpf Coarse Granular Ca sts /lpf 01/01/20 01/01/20 01/01/20 Range/Units 19:00 19:50 21:45 WBC (4.0-10.0) 10^3/ uL Corrected WBC (4.8-10.8) 10^3/ cmm RBC (4.1-5.3) 10^6/u L Hgb (11.7-16.6) g/dL Hct (42.0-52.0) % MCV (80-94) fL MCH (28.0-34.0) pg MCHC (30.0-36.0) g/dL RDW (12.1-15.1) % Plt Count (130-400) 10^3/c mm MPV (7.4-10.4) fL Nucleated RBC % (a uto) % Total Counted (0-100) Segmented Neutroph ils % Band Neutrophils % Lymphocytes (Manua l) % Monocytes (Manual) % Absolute Monocytes (0.1-0.6) 10^3/c mm Eosinophils (Manua l) % Absolute Eosinophi ls (0.0-0.7) 10^3/c mm Metamyelocytes % Myelocytes % Nucleated RBCs (0-1) /100WBC Nucleated RBCs # /100WBC Platelet Estimate (Normal) Polychromasia Anisocytosis Microcytosis Macrocytosis PT (10.5-13.3) SECO NDS INR (0.8-1.2) D-Dimer (0-0.59) ug/mIFE U Specimen Type Arterial ABG pH 7.41 (7.35-7.45) ABG pCO2 39.6 (35-45) mmHg ABG pO2 85.1 (80.0-100.0) mmH g ABG HCO3 25.1 (22-26) mmol/L ABG Base Excess 0.4 (-2.0-2.0) mmol/ L Emil Test Pos Hematocrit 32.4 L (42-52) % Graphics Programmer ID anonymous Sodium (136-145) mmol/L Potassium (3.5-5.1) mmol/L Chloride (98-107) mmol/L Carbon Dioxide (22-29) mmol/L Anion Gap (5-19) BUN (8-23) mg/dL Creatinine (0.7-1.2) mg/dL Glucose (65-115) mg/dL Calculated Osmolal ity (285-295) mOsm/k g Lactic Acid (0.5-2.2) mmol/L Lactic Acid (Sepsi s) (0.5-2.2) mmol/L Calcium (8.5-10.5) mg/dL Total Bilirubin (0.15-1.2) mg/dL AST (0-40) U/L ALT (0-41) U/L Alkaline Phosphata se (40-130) IU/L Troponin T Baselin e (0-15) ng/mL Troponin T 120 Min santosh 32.85 H (0-15) ng/mL Delta Troponin T -3.15 L (0-10) ABS# NT-Pro-B Natriuret Pep (0-450) pg/mL Total Protein (6.6-8.7) g/dL Albumin (3.5-5.2) g/dL Globulin (1.3-4.6) g/dL Urine Color [place] (Yellow) Urine Appearance Hazy A (CLEAR) Urine pH 5 (5-7) Ur Specific Gravit y 1.020 (1.005-1.030) Urine Protein Neg (Negative) Urine Glucose (UA) Norm (Normal) Urine Ketones Negative (Negative) Urine Blood 3+ H (Negative) Urine Nitrate Negative (Negative) Urine Bilirubin Neg (NEGATIVE) Urine Urobilinogen 1 H (Negative) mg/dL Ur Leukocyte Clau ase Negative (Negative) Urine RBC 25-40 H (0-2) /hpf Urine WBC 0-4 H (0-5) /hpf Ur Squamous Epith Cells 0-4 H (0-5) Urine Bacteria 1+ H (NONE) Hyaline Casts 0-4 H Fine Granular Cast s 0-4 H /lpf Coarse Granular Ca sts 0-4 H /lpf 01/01/20 Range/Units 21:52 WBC (4.0-10.0) 10^3/ uL Corrected WBC (4.8-10.8) 10^3/ cmm RBC (4.1-5.3) 10^6/u L Hgb (11.7-16.6) g/dL Hct (42.0-52.0) % MCV (80-94) fL MCH (28.0-34.0) pg MCHC (30.0-36.0) g/dL RDW (12.1-15.1) % Plt Count (130-400) 10^3/c mm MPV (7.4-10.4) fL Nucleated RBC % (a uto) % Total Counted (0-100) Segmented Neutroph ils % Band Neutrophils % Lymphocytes (Manua l) % Monocytes (Manual) % Absolute Monocytes (0.1-0.6) 10^3/c mm Eosinophils (Manua l) % Absolute Eosinophi ls (0.0-0.7) 10^3/c mm Metamyelocytes % Myelocytes % Nucleated RBCs (0-1) /100WBC Nucleated RBCs # /100WBC Platelet Estimate (Normal) Polychromasia Anisocytosis Microcytosis Macrocytosis PT (10.5-13.3) SECO NDS INR (0.8-1.2) D-Dimer (0-0.59) ug/mIFE U Specimen Type ABG pH (7.35-7.45) ABG pCO2 (35-45) mmHg ABG pO2 (80.0-100.0) mmH g ABG HCO3 (22-26) mmol/L ABG Base Excess (-2.0-2.0) mmol/ L Emil Test Hematocrit (42-52) % Graphics Programmer ID Sodium (136-145) mmol/L Potassium (3.5-5.1) mmol/L Chloride (98-107) mmol/L Carbon Dioxide (22-29) mmol/L Anion Gap (5-19) BUN (8-23) mg/dL Creatinine (0.7-1.2) mg/dL Glucose (65-115) mg/dL Calculated Osmolal ity (285-295) mOsm/k g Lactic Acid 2.9 H (0.5-2.2) mmol/L Lactic Acid (Sepsi s) (0.5-2.2) mmol/L Calcium (8.5-10.5) mg/dL Total Bilirubin (0.15-1.2) mg/dL AST (0-40) U/L ALT (0-41) U/L Alkaline Phosphata se (40-130) IU/L Troponin T Baselin e (0-15) ng/mL Troponin T 120 Min santosh (0-15) ng/mL Delta Troponin T (0-10) ABS# NT-Pro-B Natriuret Pep (0-450) pg/mL Total Protein (6.6-8.7) g/dL Albumin (3.5-5.2) g/dL Globulin (1.3-4.6) g/dL Urine Color (Yellow) Urine Appearance (CLEAR) Urine pH (5-7) Ur Specific Gravit y (1.005-1.030) Urine Protein (Negative) Urine Glucose (UA) (Normal) Urine Ketones (Negative) Urine Blood (Negative) Urine Nitrate (Negative) Urine Bilirubin (NEGATIVE) Urine Urobilinogen (Negative) mg/dL Ur Leukocyte Clau ase (Negative) Urine RBC (0-2) /hpf Urine WBC (0-5) /hpf Ur Squamous Epith Cells (0-5) Urine Bacteria (NONE) Hyaline Casts Fine Granular Cast s /lpf Coarse Granular Ca sts /lpf Imaging Data^: CXR: My impression: No acute cardiopulmonary findings. Right tib-fib: My impression: No acute metastatic or lytic lesions. Discharge Plan Discharge Patient Disposition: Placed in Observation Admit Provider: Charles Joseph Clinical Impression: Pulmonary embolism, Pneumonitis Condition: Stable Interventions: ED Discharge Assessment Last Done: 01/01/20 22:43 ED Charges Last Done: 01/01/20 22:44 Discharge Date/Time: 01/01/20 23:25 Coding Level of Care Code ED Reproductive Endocrinologist for Chg Fwd Exam Comprehensive
[2020-01-01 20:12] LABS: Troponin 5 2HR 32.85 ng/mL (0-15)
--- NOTE | 2020-01-01 20:15 | XR_ITS ---
WS: [id number] XR tibia fibula RT 2V [id number] REASON FOR EXAM: pain FINDINGS: An osteochondral defect is seen off the medial aspects of the ankle mortise its articulatio n with the tibia. There is no other fractures or dyscrasias of the ankle mortise. The shafts of the tibia and fibula appear to be normal. XR/XR tibia fibula RT 2V [id number] IMPRESSION: Osteochondral defect along the medial aspects of the ankle mortise.
[2020-01-01 20:16] LABS: Troponin 5 2HR Delta -3.15 ABS# (0-10)
[2020-01-01 20:45] LABS: D Dimer 11.76 ug/mIFEU (0-0.59)
--- NOTE | 2020-01-01 20:46 | CTR_ITS ---
PROCEDURE INFORMATION: Exam: CT Angiography Chest With Contrast Exam date and time: 01/01/2020 9:08 PM Age: 84 years old Clinical indication: Abdominal tenderness; Dyspnea; Additional info: Dyspnea/positive d-dimer TECHNIQUE: Imaging protocol: Computed tomographic angiography of the chest with intravenous contrast. 3D rendering: MIP and/or 3D reconstructed images were created by the technologist. Radiation optimization: All CT scans at this facility use at least one of these dose optimization techniques: automated exposure control; mA and/or kV adjustment per patient size (includes targeted exams where dose is matched to clinical indication); or iterative reconstruction. Contrast material: OMNI 350; Contrast volume: 95 ml; Contrast route: IV; COMPARISON: CTA Chest-Pulmonary Emb [id number] 09/14/2018 11:33 AM RADIATION DOSE METRICS: Total DLP: 1482.89 mGy-cm FINDINGS: Heart size within normal limits. Enlarged subcarinal lymph node measuring 1.7 cm short axis on series 2, image 257. Enlarged right hilar lymph node measuring 1.5 cm short axis on series 2, image 251. Small filling defect in a left lower lobe segmental pulmonary artery (series 2, image 301). This is concerning for a pulmonary embolus. This is peripheral in the artery, suggesting chronic pulmonary embolus. Mild atherosclerotic calcification of the thoracic aorta. There is no evidence of thoracic aortic aneurysm or dissection within the limits imposed by heart motion artifact. Severe emphysematous changes throughout both lungs. Moderate groundglass opacities throughout the right upper lobe and left upper lobe. Differential diagnosis includes pulmonary edema, hypersensitivity pneumonitis, and infectious process (especially opportunistic). Marked bronchiectasis in the right lower lobe and left lower lobe. Numerous nodules and nodular airspace opacities in the right lower lobe and left lower lobe, consistent with pneumonia and/or metastatic disease. Substantial soft tissue density in bronchi of the right lower lobe and left lower lobe, consistent with mucus and/or tumor. No pneumothorax or pleural effusion. Diffusely mottled appearance of the visualized skeleton, concerning for metastatic disease. Large lucent area in the left humeral head, concerning for metastatic disease. Discontinuity in the medial cortex of the left humeral head (series 2, image 1), concerning for nondisplaced fracture. If additional or more detailed information is needed, an addendum can be generated on request. IMPRESSION: 1. Small filling defect in a left lower lobe segmental pulmonary artery. This is concerning for a pulmonary embolus. This is peripheral in the artery, suggesting chronic pulmonary embolus. 2. Severe emphysematous changes throughout both lungs. 3. Moderate groundglass opacities throughout the right upper lobe and left upper lobe. Differential diagnosis includes pulmonary edema, hypersensitivity pneumonitis, and infectious process (especially opportunistic). 4. Marked bronchiectasis in the right lower lobe and left lower lobe. 5. Numerous nodules and nodular airspace opacities in the right lower lobe and left lower lobe, consistent with pneumonia and/or metastatic disease. 6. Substantial soft tissue density in bronchi of the right lower lobe and left lower lobe, consistent with mucus and/or tumor. 7. Diffusely mottled appearance of the visualized skeleton, concerning for metastatic disease. Large lucent area in the left humeral head, concerning for metastatic disease. Discontinuity in the medial cortex of the left humeral head, concerning for pathologic fracture. COMMENT: Highly suspicious nodule(s). Consider PET/CT, or tissue sampling.(Dana et al., Fleischner Society, 2017) PROCEDURE INFORMATION: Exam: CT Abdomen And Pelvis With Contrast Exam date and time: 01/01/2020 9:08 PM Age: 84 years old Clinical indication: Abdominal tenderness; Dyspnea; Additional info: Dyspnea/positive d-dimer TECHNIQUE: Imaging protocol: Computed tomography of the abdomen and pelvis with intravenous contrast. Radiation optimization: All CT scans at this facility use at least one of these dose optimization techniques: automated exposure control; mA and/or kV adjustment per patient size (includes targeted exams where dose is matched to clinical indication); or iterative reconstruction. Contrast material: OMNI 350; Contrast volume: 95 ml; Contrast route: IV; COMPARISON: CTA Chest-Pulmonary Emb [id number] 09/14/2018 11:33 AM RADIATION DOSE METRICS: Total DLP: 1482.89 mGy-cm FINDINGS: Numerous ill-defined hypodense lesions scattered throughout the liver, concerning for metastatic disease. Several gallstones noted in the gallbladder. Numerous small calcified granulomata noted in the spleen. The pancreas and adrenal glands are unremarkable. Several cysts and probable cysts in each kidney. A normal-appearing appendix is seen in the right lower quadrant. No evidence of bowel obstruction. Diverticulosis of the descending and sigmoid colon without evidence of diverticulitis. No free intraperitoneal air or fluid identified. Small right bladder diverticulum. Small left bladder diverticulum. Large amount of soft tissue density in the bladder posteriorly, which may represent tumor or blood products. The prostate is large. 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 Diffusely mottled appearance of the visualized skeleton, concerning for metastatic disease. If additional or more detailed information is needed, an addendum can be generated on request. CT/CT angio chest w abd pel w con IMPRESSION: 1. Numerous ill-defined hypodense lesions scattered throughout the liver, concerning for metastatic disease. 2. Large amount of soft tissue density in the bladder posteriorly, which may represent tumor or blood products. 3. Diffusely mottled appearance of the visualized skeleton, concerning for metastatic disease. 4. 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 5. Several gallstones noted in the gallbladder. Radiation Dose CTDIVOL = (mGy): DLP = 1482.89~1482.89 (mGy-cm)
[2020-01-01] MEDS: iohexol 350 mg/mL 100 mL Btl IV (21:13)
--- NOTE | 2020-01-01 22:10 | PM.HP ---
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 Patient has started taking prednisone with GnRH analog as per Dr. Durbin's recommendations recently. Patient is stating that he uses 3 to 4 L of oxygen on as needed basis at home, lately for last 2 weeks he has been getting more short of breath at rest and on exertion, it most gets worse on laying flat, positive orthopnea and PND, he is bringing up yellow sputum, he has not noticed any fever, no sick contacts or recent traveling, is denying subjective fevers, no nausea, vomiting or chest pain. He does not carry any diagnosis of coronary disease, [place] however documentation mentions congestive heart failure of unspecific type. Patient is also stating that his right leg is hurting, which she describes as achy radiating from his right knee towards his toes. At home he is not leading a very active lifestyle, he does not smoke or drink alcohol. Diagnostics in the ER revealed normal hemodynamics, no leukocytosis, high lactic acid, CTA chest showed subsegmental left-sided PE, high BNP, negative delta troponin He is afebrile, no active restaurant distress at the time of interview Review of Systems Const: Reports: body aches, change in appetite, fatigue, malaise and change in sleep pattern; Denies: fever or chills Eyes: Denies: change in vision ENMT: Denies: throat pain Card: Reports: shortness of breath on exertion and shortness of breath when lying down; Denies: chest pain, swelling of feet/ankles or bluish discoloration of hands/feet Resp: Reports: shortness of breath and productive cough; Denies: wheezing or coughing up blood GI: Denies: abdominal pain, nausea or vomiting : Denies: flank pain Musc: Reports: joint pain and decrease in muscle mass; Denies: joint stiffness, muscle cramps or muscle weakness Skin/Breast: Reports: chronic lesion; Denies: rash Neuro: Denies: headache Psych: Denies: anxiety Endo: Denies: excessive urination Eduardo/Lymph: Denies: easy bruising All/Imm: Denies: hives Medications/Allergies Home Medications Medication Instructions Recorded Confirmed Last Taken Type tamsulosin 0.4 mg capsule 0.4 mg PO DAILY #30 cap 10/19/19 01/01/20 01/01/20 Rx Allergy Relief (fluticasone) 50 mcg NOSTRIL-B DAILY 01/01/20 01/01/20 01/01/20 History Casodex 50 mg PO DAILY 01/01/20 01/01/20 01/01/20 History Voltaren 75 mg PO BID 01/01/20 01/01/20 01/01/20 History Zytiga 250 mg PO DAILY 01/01/20 01/01/20 12/31/19 History albuterol sulfate 2.5 mg NEBULIZER TID 01/01/20 01/01/20 01/01/20 History latanoprost 125 mcg EYE-BOTH DAILY 01/01/20 01/01/20 01/01/20 History Allergies Allergy/AdvReac Type Severity Reaction Status Date / Time No Known Allergies Allergy Unverified 10/19/19 13:37 PFSH Acute PFSH: Medical History Abnormal colonoscopy Adenomatous polyp CHF (congestive heart failure) COPD (chronic obstructive pulmonary disease) Gallstone Other specified cardiac arrhythmias Prostate cancer Diagnosed August 2018 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 Diffuse retroperitoneal lymphadenopathy, sclerotic bony changes, mediastinal lymphadenopathy, Jurgen score 4+4, metastatic disease throughout axial and appendicular skeleton Surgical History History of appendectomy History of cataract surgery S/P TURP Family History Mother CAD (coronary artery disease) Due to [place] age 75 Social History Smoking and tobacco status: former smoker Alcohol intake: never Substance/Drug Use: never Household members: family Housing: House Vitals/I&O/Wt Last Vital Signs Temp 97.8 F 01/01/20 17:52 Pulse 88 01/01/20 21:43 Resp 18 01/01/20 21:43 BP 119/70 01/01/20 21:43 Pulse Ox 98 01/01/20 21:43 Weight last 48 hrs Weight 74.843 kg Physical Exam Narrative: EXAM NARRATIVE: Head to toe examination elderly male Hard of hearing EOMI, PERRLA Awake alert oriented x3, GCS 15 Neurologically no focal deficit S1, S2 clinically does not look fluid overloaded Abdomen soft, distended, obese obesity, bowel sound present, Lungs positive for bilateral rhonchi and crackles at the bases without wheezing or active restaurant distress Skin does not show any active bleeding gangrene or ulcer Dorsalis pedis pulses 1+ bilaterally No joint swelling, tenderness or warmth appreciated around knee Good range of motion of knee and hip joint with flexion and extension Patient has pursed lip breathing Negatives No JVD No lower extremity edema No active respiratory stress No cyanosis No cachexia Data : 01/01/20 18:05 01/01/20 18:05 Micro: Microbiology 01/01/20 18:05 Blood Culture - Preliminary Blood SPECIMEN COLLECTED 01/01/20 21:52 Blood Culture - Preliminary Blood SPECIMEN COLLECTED A&P Assessment and plan (1) Pulmonary embolism: Status: Acute Qualifiers: Acute cor pulmonale presence: unspecified Chronicity: unspecified Pulmonary embolism type: unspecified Qualified Code(s): I26.99 - Other pulmonary embolism without acute cor pulmonale (2) Prostate cancer metastatic to bone: Status: Acute (3) Congestive heart failure: Status: Acute (4) Lactic acid acidosis: Status: Acute (5) Thrombocytopenia: Status: Acute (6) Anemia: Status: Acute (7) DNR (do not resuscitate): Status: Acute Additional A&P Information Shortness of breath secondary to underlying CHF exacerbation and subsegmental PE Stable hemodynamically High BNP, troponin negative delta currently no chest pain 1 dose of therapeutic Lovenox given in the ER, considering history of cancer I would continue Lovenox with close monitoring for thrombocytopenia Currently no active restaurant distress currently saturating well on 3 L nasal cannula No right heart strain on the EKG, positive for unifocal PVCs Bilateral lower extremity Dopplers Patient has high lactic acid in absence of fever and leukocytosis, considering his immunocompromised state and recent steroid use I would go ahead and start MRSA and antipseudomonal coverage for now, CT chest showing bronchiectasis New onset congestive heart failure exacerbation Patient denies previous history of CHF I will get echo in the morning, he will be Lasix na?ve I would use low-dose for now clinically no overt fluid overloaded sign CHF exacerbation could very well be due to underlying COPD, no active heart murmur, no active chest pain AJ due to cardiorenal etiology No acute intervention at this point, considering high BNP would use lowdose Lasix at this point. Monitor BMP, patient is not hypotensive, not on any nephrotoxic agents Thrombocytopenia with anemia No active source of bleeding Monitor platelet closely due to concurrent use of anticoagulants and antibiotics Right knee pain No active joint swelling, no limited range of motion No signs of sepsis or septic joint Check venous Dopplers, I would keep peripheral neuropathy and metastatic bone disease also in the differential No cyanosis or gangrene of toes, dorsalis pedis pulses bilateral 1+ Stage IV prostate cancer with metastases currently undergoing castration resistant antiandrogenic therapy along steroids No active urinary retention, I discussed goals of care in detail and patient is expressing his wishes to stay DNR/DNI Cardiac diet DVT prophylaxis currently on Lovenox twice a day Attestations Medical Necessity Statement*: Anticipating stay in the hospital course more than 2 midnights because of new onset CHF, pulmonary embolism, he has stage IV prostate cancer high risk for increased mortality morbidity Time Spent in Patient Care: 50 Coding Level of Care Code Acute Formation Fracturing Operator for g Fwd Diagnoses Pulmonary embolism I26.99 Acute cor pulmonale presence: unspecified Chronicity: unspecified Pulmonary embolism type: unspecified Prostate cancer metastatic to bone C61; C79.51 Congestive heart failure I50.9 Lactic acid acidosis E87.2 Thrombocytopenia D69.6 Anemia D64.9 DNR (do not resuscitate) Z66
[2020-01-01 22:15] LABS: Bilirubin Urine Neg (NEGATIVE); Blood Urine 3+ (Negative); Glucose Urine UA Norm (Normal); Ketones Urine Negative (Negative); Leukocyte Esterase Urine Negative (Negative); Nitrate Urine Negative (Negative); Protein Urine Neg (Negative); Urine Appearance Hazy (CLEAR); Urine Color Orange (Yellow); Urobilinogen Urine 1 mg/dL (Negative); pH Urine 5 (5-7)
[2020-01-01 22:16] LABS: Coarse Granular Casts Urine 0-4 /lpf; Fine Granular Casts Urine 0-4 /lpf; Hyaline Casts Urine 0-4; RBC Urine 25-40 /hpf (0-2); Squamous Epithelial Cell Urine 0-4 (0-5); WBC Urine 0-4 /hpf (0-5)
[2020-01-01 22:17] LABS: Add Urine Culture? Yes; Bacteria Urine 1+
[2020-01-01 22:18] LABS: Lactic Sepsis W/Reflex 2.9 mmol/L (0.5-2.2)
[2020-01-01] MEDS: enoxaparin 80 mg/0.8 mL Syringe 75 MG SUBCUT (22:27)
[2020-01-01] MEDS: piperacillin-tazobactam 3.375 GM in sodium chloride 0.9% (plus) 50 ML IV (22:32)
[2020-01-01 23:49] LABS: Reflex Lactate Order REFLEX LACTIC ORDERD
[2020-01-02] VITALS (13 sets, daily range): BP systolic 94–128; BP diastolic 57–77; PULSE 61–82; RESP 16–20; TEMP 35.9–36.8; O2SAT 75–97
[2020-01-02 00:26] LABS: Troponin 5 6HR 26.71 ng/mL (0-15)
--- NOTE | 2020-01-02 00:32 | PC.PHAR ---
Pharmacokinetic dosing service Date: 01/02/20 Time: 29 Objective: Patient: Robert Gonzalez Floor: [id number] Age: 84 yo Serum creatinine: 1.3 mg/dL Height: 69.0 Inches Weight (kg): 74.843 Diagnosis: Relevant medical/social history: Cultures and sensitivities: Other labs: Assessment: IBW (kg): 70.70 Dosing wt(kg): 74.843 Estimated Creatinine clearance (ml/min): 42.3 CRCL method: Cockcroft and Gault using ibw(default). Drug selected: Vancomycin Loading dose (mg): 0 Vd (liters): 67.4 (factor used: 0.9 L/kg) Chin (hr-1): 0.040 Half life (hrs): 17.33 Recommended dose: 1250 mg Interval: 24 hrs Infusion time (hrs): 1.5 Predicted peak (mcg/mL): 29.2 Predicted trough (mcg/mL): 11.87 Total body weight is being used for vancomycin dosing. Renal function is stable [ ] /unstable [ ] Recommendations: Give Vancomycin 1250 mg q 24 hrs with an expected Cpeak of 29.2 mcg/ml and an expected Ctrough of 11.87 mcg/ml Renal dosing of other antibiotics (review renal dosing of other medications and list guidelines here): Thank you for the consult, will continue to follow. Signature: Catie Ballard [facility]
[2020-01-02 00:35] LABS: Procalcitonin 0.26 ng/mL (0-0.5); Thyroid Stimulating Hormone 0.76 uIU/mL (0.27-4.20)
[2020-01-02 01:08] LABS: Lactic Acid level (Lactate) 1.2 mmol/L (0.5-2.2)
[2020-01-02 05:23] LABS: Basophils # 0.1 10^3/uL (0.0-0.1); Eosinophils # 0.1 10^3/uL (0.0-0.8); Eosinophils % 1.6 %; Hematocrit 31.4 % (42.0-52.0); Hemoglobin 9.6 g/dL (11.7-16.6); Lymphocytes # 1.4 10^3/uL (0.8-4.8); Lymphocytes % 28.1 %; Mean Corpuscular HGB Conc 30.6 g/dL (30.0-36.0); Mean Corpuscular Hemoglobin 30.3 pg (28.0-34.0); Mean Corpuscular Volume 99.1 fL (80-94); Mean Platelet Volume 9.6 fL (7.4-10.4); Monocytes # 0.9 10^3/uL (0.2-0.9); Monocytes % 16.9 %; Neutrophils # 2.2 10^3/uL (1.8-7.7); Neutrophils % 44.6 %; Nucleated Red Blood Cells # 0.7 /100WBC; Nucleated Red Blood Cells % 14.7 %; Platelet Count 43 10^3/cmm (130-400); Red Blood Count 3.17 10^6/uL (4.1-5.3); Red Cell Distribution Width 18.8 % (12.1-15.1)
[2020-01-02 05:50] LABS: Alanine Aminotransferase 66 U/L (0-41); Albumin Level 3.2 g/dL (3.5-5.2); Alkaline Phosphatase 1000 IU/L (40-130); Anion Gap 12.8 (5-19); Aspartate Amino Transferase 140 U/L (0-40); Blood Urea Nitrogen 38 mg/dL (8-23); Calcium 7.9 mg/dL (8.5-10.5); Carbon Dioxide 25 mmol/L (22-29); Chloride 107 mmol/L (98-107); Globulin 2.6 g/dL (1.3-4.6); Glucose 138 mg/dL (65-115); Osmolality Calculated 288 mOsm/kg (285-295); Potassium 5.8 mmol/L (3.5-5.1); Sodium 139 mmol/L (136-145); Total Protein 5.8 g/dL (6.6-8.7)
[2020-01-02 05:51] LABS: Lactic Acid level (Lactate) 1.3 mmol/L (0.5-2.2)
[2020-01-02] MEDS: piperacillin-tazobactam 3.375 GM in sodium chloride 0.9% (plus) 50 ML IV ×3 (06:14→21:55)
[2020-01-02 06:57] LABS: Slide Review Slide Review Perform
--- NOTE | 2020-01-02 07:00 | USCV_ITS ---
Robert Gonzalez Age: 84 Gender: M : 1935 Exam Date: 01/02/2020 14:18 Ordering Phys: Charles Joseph MD Technologist: Altagracia Reyes [place] [facility] [place]: CHF BP: 128 / 77 HR: 73 Rhythm: Sinus Technical Quality: Very technically difficult study MEASUREMENTS (Male / Female) Normal Values 2D ECHO LV Diastolic Diameter PLAX 3.2 cm 4.2 - 5.9 / 3.9 - 5.3 cm LV Systolic Diameter PLAX 2.6 cm LV Chamber Size 3.7 cm IVS Diastolic Thickness 1.8 cm 0.6 - 1.0 / 0.6 - 0.9 cm IVS Systolic Thickness 1.9 cm LVPW Diastolic Thickness 1.7 cm 0.6 - 1.0 / 0.6 - 0.9 cm LVPW Systolic Thickness 1.8 cm RV Chamber Size 3.3 cm LVOT Diameter 2.1 cm LV Ejection Fraction 2D Teich 39.8 % LV Ejection Fraction MOD 2C 74.9 % LV Ejection Fraction 2C AL 75.6 % LA Diameter 2.8 cm LA Width 3.2 cm LA Height 4.7 cm RA Width 3.7 cm RA Height 4.6 cm Aorta at Sinotubular Diameter 3.4 cm M-MODE LV Diastolic Diameter MM 4.8 cm 4.2 - 5.9 / 3.9 - 5.3 cm LV Systolic Diameter MM 2.0 cm LV Ejection Fraction MM Teich 88.2 % IVS Diastolic Thickness MM 1.6 cm 0.6 - 1.0 / 0.6 - 0.9 cm IVS Systolic Thickness MM 2.6 cm LVPW Diastolic Thickness MM 1.4 cm 0.6 - 1.0 / 0.6 - 0.9 cm LVPW Systolic Thickness MM 2.2 cm RV Diastolic Diameter MM 1.7 cm Aortic Annulus Diameter 3.6 cm LA Ao Ratio MM 0.8 MV E Point Septal Separation 0.7 cm DOPPLER AV Peak Velocity 166.0 cm/s LVOT Peak Velocity 81.0 cm/s AV Area Cont Eq vti 1.6 cm squared AV Area Cont Eq pk 1.7 cm squared MV Area PHT 3.0 cm squared MV E' Velocity 12.0 cm/s Mitral E to MV E' Ratio 6.0 Mitral E to LV E' Lateral Ratio 5.1 Mitral E to LV E' Septal Ratio 7.4 TR Peak Velocity 268.6 cm/s TR Peak Gradient 28.9 mmHg TR Mean Velocity 180.6 cm/s TR Mean Gradient 15.7 mmHg TR Velocity Time Integral 66.2 cm TV Peak E Velocity 58.0 cm/s Right Atrial Pressure 3.0 mmHg Pulmonary Artery Systolic Pressu 31.9 mmHg PV Peak Velocity 35.0 cm/s RV Acceleration Time 0.1 s RV Ejection Time 0.4 s RV AcT/ET 0.3 FINDINGS Left Ventricle The study is technically very difficult for interpretation. The ventricle is likely normal in size. There is at least lower limit of normal left ventricular function. Cannot determine wall motion disturbances. Grade 1 diastolic dysfunction. Estimated ejection fraction 55%. Right Ventricle Right ventricle not well visualized. Normal right ventricular size and systolic function. Mild pulmonary hypertension, RVSP 31.9 mmHg. Right Atrium The right atrium is normal in size. Left Atrium The left atrium is normal in size. Mitral Valve Mitral valve not well visualized. Structurally normal mitral valve. No mitral valve regurgitation. Aortic Valve Aortic valve not well visualized. Structurally normal trileaflet aortic valve. There may be mild aortic stenosis. Mild aortic valve stenosis, mean gradient 5.1 mmHg, CAMILA 1.6 cm squared. Trivial aortic insufficiency Tricuspid Valve Structurally normal tricuspid valve. Trace tricuspid valve regurgitation. Pulmonic Valve Pulmonic valve not well visualized. Pericardium Normal pericardium without effusion. Aorta Normal ascending aorta dimension. CONCLUSIONS The study is technically very difficult for interpretation. The ventricle is likely normal in size. There is at least lower limit of normal left ventricular function. Cannot determine wall motion disturbances. Grade 1 diastolic dysfunction. Estimated ejection fraction 55%. Right ventricle not well visualized. Normal right ventricular size and systolic function. Mild pulmonary hypertension, RVSP 31.9 mmHg. Aortic valve not well visualized. Structurally normal trileaflet aortic valve. There may be mild aortic stenosis. Mild aortic valve stenosis, mean gradient 5.1 mmHg, CAMILA 1.6 cm squared. Trivial aortic insufficiency. There are no prior echocardiogram studies to compare. Dr. Kristian De Souza MD (Electronically Signed) Final Date: 02 Jan 2020 15:59 S
[2020-01-02] MEDS: ipratropium-albuterol 3 mL Neb INHALATION ×2 (08:03→14:50)
[2020-01-02] MEDS: FUROsemide 20 mg Tablet PO (08:32)
[2020-01-02] MEDS: tamsulosin 0.4 mg Capsule PO (08:32)
[2020-01-02] MEDS: enoxaparin 80 mg/0.8 mL Syringe 70 MG SUBCUT ×2 (10:45→21:56)
--- NOTE | 2020-01-02 11:11 | PC.CHAP ---
Pastoral Care Encounter/Spiritual Assessment Type of Contact [] Declined identification clerk visit [] Patient/Family/Request visit [] Outpatient visit [] Follow-up visit [] Physician referral [] Code/Alert [x] Routine visit [] Staff referral [] Actively dying [] Patient sleeping [] Family support [] [] Out of room [] Palliative care [] [x] Receiving care in room [] Pre-surgical visit [] Trauma [] Long length of stay [] ICU visit [] Other: Relational/Emotional Strength [] Patient feels connected with others/family/visitors/staff [x] Distress [] Loneliness/isolation [] Abandonment Spirituality of Patient [x] Person of July [] Attends Hoahaoism of their July [x] Believes in Prayer [] Reads Bible or Christian materials [] There are Spiritual issues to be addressed Home Care Consultant Interventions [x] Prayer [x] Active listening [x] Non-anxious presence [x] Spiritual/emotional support [] Crisis/trauma care [x] Spiritual counseling [] Bereavement support [] Provided bereavement packet [] Provided Bible/devotional materials [] Provided toy/stuffed animal, coloring book to patient or family member [] Provided Communion [] Anointing/[place] [] Salvation [x] Completed spiritual assessment [] Other: Impact on Illness or Injury [] Angry [] Fearful [x] Anxious [] Often cries [] Exhaustion [x] Unable to work [] Unable to attend pentecostal [] Unable to walk/stand [] Unable to read [x] Unable to drive [] Unable to eat/drink [] Unable to sleep [] Unable to be with family [] Patient intubated [] Other: Summary Has cancer, can't breath lungs, has a good attitude, possitive about getting better Time spent with patient 10 mins
--- NOTE | 2020-01-02 11:23 | PM.PN ---
Subjective Subjective: Interval history: Patient awake in bed at time of exam today. He reports that his breathing is feeling better. He denies any chest pain or shortness of breath. Patient denies any abdominal pain, noted that lower extremity edema has resolved. He reports that the pain that he was having in his arm and leg has now improved. Discussed with patient concern for pulmonary embolus, concern for widespread metastatic disease, he verbalized understanding. Also discussed with patient the concern for thrombocytopenia, low platelet count but requiring blood thinners due to pulmonary embolism. Vitals/I&O/Wt Last Vital Signs Temp 97.5 F L 01/02/20 11:01 Pulse 75 01/02/20 11:01 Resp 18 01/02/20 11:01 BP 102/59 01/02/20 11:01 Pulse Ox 75 L 01/02/20 11:01 01/01/20 01/02/20 01/02/20 22:59 06:59 14:59 Intake Total 50 / 50 360 / 360 Output Total 300 / 300 Balance -250 / -250 360 / 360 Weight last 48 hrs Weight 74.843 kg Data : 01/02/20 05:07 01/02/20 05:07 Micro: Microbiology 01/01/20 18:05 Blood Culture - Preliminary Blood SPECIMEN COLLECTED 01/01/20 21:52 Blood Culture - Preliminary Blood SPECIMEN COLLECTED A&P Assessment and plan (1) Congestive heart failure: Unspecified heart failure with concern for exacerbation Given Lasix 20 mg daily and has had some improvement in respiratory status We will continue with Lasix 20 mg at this time Status: Acute (2) Pulmonary embolism: Patient with subsegmental pulmonary embolus, currently on treatment dose Lovenox every 12 hours Respiratory therapy to assess and treat, oxygen per protocol Patient also has new onset thrombocytopenia, will continue close monitoring Status: Acute Qualifiers: Acute cor pulmonale presence: unspecified Chronicity: unspecified Pulmonary embolism type: unspecified Qualified Code(s): I26.99 - Other pulmonary embolism without acute cor pulmonale (3) Pneumonitis: Patient has moderate groundglass opacification throughout the right upper lobe and left upper lobe with concern for pneumonitis and infectious process as well as CHF. Remains on broad-spectrum antibiotics at this time due to immunocompromise status. We will follow-up with cultures Status: Acute (4) Anemia: Acute anemia, no evidence of any active bleeding at this time Denies any melena Concern for acute liver changes possibly related to metastatic disease. Discussed with Dr. Durbin, repeat PSA ordered. Status: Acute (5) Thrombocytopenia: Acute thrombocytopenia Patient is on treatment dose Lovenox at this time due to concern for subsegmental PE Discussed with Dr. Durbin, continue on anticoagulation at this time but may need to discontinue if continues to decline Status: Acute (6) Prostate cancer metastatic to bone: Concern for worsening metastatic disease. Discussed with patient's oncologist, Dr. Durbin today. Plan to recheck PSA today. Patient has new onset anemia, thrombocytopenia, acute elevation in transaminases with CT scan of the chest abdomen and pelvis showing diffuse metastatic disease with concern for metastatic changes in the lungs. Status: Acute (7) Gallstone: Due to concern for acute liver changes will further evaluate the common bile duct with right upper quadrant ultrasound Status: Acute (8) COPD (chronic obstructive pulmonary disease): Patient is chronically on 3 L of oxygen by nasal cannula, respiratory therapy to assess and treat, oxygen per protocol Status: Acute Additional A&P Information Generalized deconditioning due to chronic disease and metastatic cancer, continue with physical therapy and Occupational Therapy DVT prophylaxis: On treatment dose anticoagulation due to above Diet: N.p.o. for right upper quadrant ultrasound CODE STATUS: Do Not Resuscitate/DNI Attestations Medical Necessity Statement*: Patient requires further hospitalization due to concern for unspecified CHF exacerbation, pneumonia and concern for acute liver failure with worsening metastatic disease. Coding Level of Care Code Acute [facility] Diagnoses Congestive heart failure I50.9 Pulmonary embolism I26.99 Acute cor pulmonale presence: unspecified Chronicity: unspecified Pulmonary embolism type: unspecified Pneumonitis J18.9 Anemia D64.9 Thrombocytopenia D69.6 Prostate cancer metastatic to bone C61; C79.51 Gallstone K80.20 COPD (chronic obstructive pulmonary disease) J44.9
--- NOTE | 2020-01-02 14:33 | PC.OT ---
OT jah attempted. Pt with physical therapy then with ultrasound/imaging. Will attempt again later as able.
[2020-01-02 15:13] LABS: Potassium 5.2 mmol/L (3.5-5.1)
[2020-01-03] VITALS (11 sets, daily range): BP systolic 90–102; BP diastolic 56–67; PULSE 69–95; RESP 16–20; TEMP 36.7–37.2; O2SAT 90–97
--- NOTE | 2020-01-03 06:00 | US_ITS ---
WS: [id number] ABDOMINAL ULTRASOUND LIMITED REASON FOR VISIT: metastatic disease, transaminitis TECHNIQUE: Grayscale and Doppler ultrasound examination of the abdomen. FINDINGS: Pancreas: Appears normal. Abdominal aorta and IVC: Mild ectasia of the abdominal aorta. Liver: Liver measures 28.2 cm in length. Enlarged liver with multiple metastases throughout. Cystic c hanges are seen in the mid liver area. The gallbladder thickened wall shows multiple stones. The common bile duct appear to be negative. Gallbladder: Gallbladder wall thickness measures 0.3 mm. Multiple stones present Right kidney: Right kidney measures 10.7 cm x 5.8 cm x 5.1 cm. Cystic changes in the mid right kidney . US/US gall bladder [id number] IMPRESSION: Enlarged liver with metastatic changes. Cyst in the liver. Multiple cholelithiasis cholecystitis. Benign cyst of the right kidney Mild ectasia of the abdominal aorta.
[2020-01-03] MEDS: piperacillin-tazobactam 3.375 GM in sodium chloride 0.9% (plus) 50 ML IV (06:03)
[2020-01-03 06:13] LABS: Basophils % 1.1 %; Eosinophils # 0.1 10^3/uL (0.0-0.8); Eosinophils % 2.2 %; Hematocrit 29.8 % (42.0-52.0); Hemoglobin 9.2 g/dL (11.7-16.6); Lymphocytes # 1.1 10^3/uL (0.8-4.8); Lymphocytes % 29.7 %; Mean Corpuscular HGB Conc 30.9 g/dL (30.0-36.0); Mean Corpuscular Hemoglobin 30.5 pg (28.0-34.0); Mean Corpuscular Volume 98.7 fL (80-94); Mean Platelet Volume 10.2 fL (7.4-10.4); Monocytes # 0.7 10^3/uL (0.2-0.9); Monocytes % 19.9 %; Neutrophils # 1.3 10^3/uL (1.8-7.7); Neutrophils % 37.6 %; Nucleated Red Blood Cells # 0.9 /100WBC; Nucleated Red Blood Cells % 24.4 %; Platelet Count 40 10^3/cmm (130-400); Red Blood Count 3.02 10^6/uL (4.1-5.3); Red Cell Distribution Width 18.8 % (12.1-15.1); White Blood Count 3.6 10^3/uL (4.0-10.0)
[2020-01-03 06:26] LABS: Alanine Aminotransferase 71 U/L (0-41); Albumin Level 3.3 g/dL (3.5-5.2); Alkaline Phosphatase 940 IU/L (40-130); Anion Gap 11.6 (5-19); Aspartate Amino Transferase 162 U/L (0-40); Blood Urea Nitrogen 39 mg/dL (8-23); Calcium 7.4 mg/dL (8.5-10.5); Carbon Dioxide 28 mmol/L (22-29); Chloride 104 mmol/L (98-107); Globulin 2.1 g/dL (1.3-4.6); Glucose 87 mg/dL (65-115); Osmolality Calculated 285 mOsm/kg (285-295); Potassium 4.6 mmol/L (3.5-5.1); Sodium 139 mmol/L (136-145); Total Protein 5.4 g/dL (6.6-8.7)
[2020-01-03 06:30] LABS: INR 1.14 (0.8-1.2)
[2020-01-03 06:40] LABS: Slide Review Slide Review Perform
[2020-01-03] MEDS: tamsulosin 0.4 mg Capsule PO (08:28)
[2020-01-03] MEDS: FUROsemide 20 mg Tablet PO (08:28)
[2020-01-03] MEDS: ipratropium-albuterol 3 mL Neb INHALATION ×3 (08:51→21:10)
[2020-01-03] MEDS: morphine 4 mg/mL SDV 1 mL IVP (16:23)
--- NOTE | 2020-01-03 16:38 | PM.PN ---
Subjective Subjective: Interval history: Patient awake in bed at time of exam today. He reported the musculoskeletal pain has improved with medications, however continues to have discomfort intermittently. Discussed with patient concern for worsening metastatic disease and significant increase in his PSA. Patient reported that he does not want to do chemotherapy ER and undergo any further treatment, discussed with patient Vitals/I&O/Wt Last Vital Signs Temp 98.9 F 01/03/20 14:57 Pulse 95 01/03/20 14:57 Resp 18 01/03/20 16:23 BP 99/62 01/03/20 14:57 Pulse Ox 93 01/03/20 16:23 01/03/20 01/03/20 01/03/20 06:59 14:59 22:59 Intake Total 50 / 750 500 / 500 Output Total 1075 / 1625 500 / 500 Balance -1025 / -875 0 / 0 Weight last 48 hrs Weight 74.843 kg Physical Exam Const: COMMON NORMALS: oriented x3 and alert GENERAL APPEARANCE: cooperative NUTRITIONAL APPEARANCE: thin ORIENTATION/CONSCIOUSNESS: Yes awake, Yes oriented to person, Yes oriented to place and Yes oriented to time HENMT: COMMON NORMALS: normocephalic and head/scalp atraumatic HEAD & SCALP: normocephalic and atraumatic Eye: COMMON NORMALS: PERRL PUPIL: Yes PERRL Neck/C-Spine: COMMON NORMALS: supple GENERAL: Yes normal visual inspection Resp: COMMON NORMALS: normal respiratory effort OTHER: Diminished breath sounds bilaterally with prolonged expiratory phase Cardio: COMMON NORMALS: regular rate and regular rhythm RATE: regular rate RHYTHM: regular rhythm GI: COMMON NORMALS: soft to palpation INSPECTION: No abdominal distension AUSCULTATION: Yes normoactive bowel sounds PALPATION: Yes soft Neuro: COMMON NORMALS: oriented x3, CN's II-XII intact bilaterally, moves all extremities and no focal motor deficits SENSORIUM/ORIENTATION: Yes alert, Yes oriented to person, Yes oriented to place and Yes oriented to time SPEECH: speech normal Psych: COMMON NORMALS: mental status grossly normal and cooperative Skin: COMMON NORMALS: no rashes or lesions noted GENERAL SKIN EXAM: no rashes or lesions noted Data : 01/03/20 05:56 01/03/20 05:56 Micro: Microbiology 01/01/20 21:45 Urine Culture - Preliminary Urine,Clean Catch 01/01/20 21:52 Blood Culture - Preliminary Blood NEGATIVE TO DATE 01/01/20 18:05 Blood Culture - Preliminary Blood NEGATIVE TO DATE A&P Assessment and plan (1) Congestive heart failure: Diastolic CHF with mild aortic stenosis Continue with Lasix 20 mg daily Status: Acute (2) Pulmonary embolism: Patient has chronic appearing subsegmental pulmonary embolus Respiratory therapy to assess and treat, oxygen per protocol Transition to comfort care measures due to metastatic prostate cancer, patient is not a good candidate for long-term anticoagulation, will discontinue at this time. Status: Acute Qualifiers: Acute cor pulmonale presence: unspecified Chronicity: unspecified Pulmonary embolism type: unspecified Qualified Code(s): I26.99 - Other pulmonary embolism without acute cor pulmonale (3) Pneumonitis: Discontinue broad-spectrum antibiotic coverage at this time as patient wishes to continue with hospice care, will transition to oral antibiotics Concern for imaging findings with metastatic disease Status: Acute (4) Anemia: Hemoglobin 9.2 Anticoagulation discontinued due to patient transitioning to hospice care and not wishing to continue with any active treatment Status: Acute (5) Thrombocytopenia: Acute thrombocytopenia and continues to decline. Patient also with neutropenia Status: Acute (6) Prostate cancer metastatic to bone: Concern for worsening metastatic prostate cancer with acute anemia, thrombocytopenia, concern for liver involvement, worsening bone metastasis and lung involvement. Patient's PSA increased to 13,000 despite treatment and he does not wish to pursue any further chemotherapy He reported that he would like to transition to comfort care on hospice We will arrange hospice care with plan for discharge tomorrow once everything is arranged Status: Acute (7) Gallstone: Status: Acute (8) COPD (chronic obstructive pulmonary disease): Patient is chronically on 4 L of oxygen by nasal cannula, respiratory therapy to assess and treat, oxygen per protocol Status: Acute Additional A&P Information Plan for transition to comfort care and hospice care. Discussed with case management and with patient's family today and will arrange for hospice care. Patient does not wish to undergo any further treatment. Will discontinue anticoagulation and broad-spectrum antibiotics and plan for discharge to home with hospice care as arranged. 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
--- NOTE | 2020-01-03 17:46 | PC.OT ---
OT note: Evlucia attempted x2 during the day today but pt was sleeping both times. Will attempt later as able.
--- NOTE | 2020-01-03 18:22 | PC.NURSE ---
DR GEORGE GAVE VERBAL ORDER TO HOLD MEDS, PT TO DC ON HOSPICE CARE.
[2020-01-04] VITALS (12 sets, daily range): BP systolic 88–102; BP diastolic 56–64; PULSE 68–84; RESP 14–22; TEMP 36.6–36.9; O2SAT 91–95
[2020-01-04] MEDS: ipratropium-albuterol 3 mL Neb INHALATION ×3 (00:10→11:35)
[2020-01-04] MEDS: morphine 4 mg/mL SDV 1 mL IVP (00:27)
--- NOTE | 2020-01-04 01:55 | PC.NURSE ---
Patient Blood pressure 96/62. Nurse Notified.
[2020-01-04] MEDS: levoFLOXacin 750 mg Tablet PO (06:02)
--- NOTE | 2020-01-04 07:05 | PC.OT ---
OT EVAL NOT COMPLETED PATIENT HAS BEEN TRANSITIONED TO COMFORT CARE
--- NOTE | 2020-01-04 09:20 | PC.SOCIAL ---
IMM Page 2 of IMM explained to patient. Initialed, dated, and timed and placed in chart. Copy provided to patient.
[2020-01-04] MEDS: tamsulosin 0.4 mg Capsule PO (10:30)
[2020-01-04] MEDS: FUROsemide 20 mg Tablet PO (10:30)
--- NOTE | 2020-01-04 12:20 | P.DS_ITS ---
Discharge Providers Date of Admission: 01/01/20 22:07 Date of Discharge: January 04, 2020 Attending Provider at Admission: Charles Joseph MD Attending Provider at Discharge: Tyron Dimas MD Primary Care Provider: Eric Michael Diagnoses at Discharge Discharge Diagnosis (1) Congestive heart failure: Status: Acute (2) Pulmonary embolism: Status: Acute Qualifiers: Acute cor pulmonale presence: unspecified Chronicity: unspecified P ulmonary embolism type: unspecified Qualified Code(s): I26.99 - Other pulmonary embolism without acute cor pulmonale (3) Pneumonitis: Status: Acute (4) Anemia: Status: Acute (5) Thrombocytopenia: Status: Acute (6) Prostate cancer metastatic to bone: Status: Acute Problem details: Stage IV Diffuse retroperitoneal lymphadenopathy, sclerotic bony changes, mediastinal lymphadenopathy, Jurgen score 4+4, metastatic disease throughout axial and appendicular skeleton (7) Gallstone: Status: Acute (8) COPD (chronic obstructive pulmonary disease): Status: Acute Reason for Visit Reason for Visit: Reason For Visit: abd pain, sob Hospital Course Discharge Summary: This is a 84-year-old male with 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 Patient was admitted for a a left lower lobe segmental pulmonary embolism, patient was admitted to the general medical floors, started on anticoagulation. Also on admission patient was found to have pneumonitis, was also found to be anemic, thrombocytopenic, had an acute kidney injury and also was found to be a new onset congestive heart failure. Given patient's metastatic prostate cancer, poor functional status, he is DNR/DNI, goals of care were discussed, patient and family elected for hospice care instead of medical interventions. Risks and benefits discussed, patient and family voiced understanding, all questions answered, patient was discharged home with home hospice. For his pulmonary embolism, given his anemia, thrombocytopenia, high risk of bleeding, and his poor functional status, the risks of anticoagulation outweigh the benefit, patient voiced understanding, all questions answered, anticoagulation was stopped on discharge. Patient was discharged on 3 remaining days for pneumonitis. Patient was discharged on Lasix for CHF. Patient was discharged on hospice/comfort care orders. Physical Exam Const: COMMON NORMALS: no apparent distress HENMT: COMMON NORMALS: normocephalic HEAD & SCALP: normocephalic Neck/C-Spine: COMMON NORMALS: no JVD Resp: COMMON NORMALS: normal respiratory effort, no retractions, no use of accessory muscles and clear to auscultation bilaterally AUSCULTATION: clear to auscultation bilaterally Cardio: COMMON NORMALS: no JVD, regular rate, regular rhythm, S1 normal heart sound and S2 normal heart sound RATE: regular rate RHYTHM: regular rhythm HEART SOUNDS: S1 normal and S2 normal GI: COMMON NORMALS: normal to inspection, nondistended, normoactive bowel sounds, soft to palpation, non-tender, no hepatosplenomegaly, no masses and no bruits PALPATION: Yes soft and Yes no hepatosplenomegaly Extremity: COMMON NORMALS: normal capillary refill, no clubbing, cyanosis or edema, no calf tenderness and no pedal edema Psych: COMMON NORMALS: mental status grossly normal Discharge Data Data Completed and Pending: Completed Studies During Hospitalization Category Date Time Status CT angio chest w abd pel w con Stat Cat Scan 01/01/20 20:46 Completed XR chest 1V [place] ble [id number] Urgent Exams 01/01/20 17:59 Completed XR tibia fibula R T 2V [id number] Stat Exams 01/01/20 20:15 Completed CV echo complete* [id number] Routine Ultrasound 01/02/20 07:00 [place] [id number] Urgent Ultrasound 01/01/20 18:13 Completed US abdomen comple te* [id number] Urgent Ultrasound 01/01/20 18:14 Completed US gall bladder 7 [id number] Routine Ultrasound 01/03/20 06:00 Completed Pending at discharge Category Date Time Status Arterial Blood Ga s W/O Coox Routine Lab 01/01/20 19:00 Results Bacterial Antigen Stat Lab 01/01/20 23:40 Uncollected Blood Culture Sta t Lab 01/01/20 18:05 Results Legionella Antige n STAT Stat Lab 01/01/20 23:40 Uncollected Urine Culture Sta t Lab 01/01/20 21:45 Results Vitals: Last Vital Signs Temp 98.1 F 01/04/20 11:39 Pulse 79 01/04/20 11:47 Resp 16 01/04/20 11:39 BP 88/56 01/04/20 11:39 Pulse Ox 91 01/04/20 11:39 Discharge Plan Discharge Patient Disposition: Hospice - Home Condition: Stable Prescriptions: New furosemide 20 mg Tablet 20 mg PO DAILY@0800 30 Days Qty: 30 RF: 0 levofloxacin 750 mg Tablet 750 mg PO Q48H 3 Days Qty: 3 RF: 0 albuterol sulfate 90 mcg/actuation HFA aerosol inhaler 1 inh INHALATION Q6H PRN (Reason: shortness of breath or wheezing) Qty: 18 RF: 0 Continued tamsulosin 0.4 mg capsule 0.4 mg PO DAILY Qty: 30 RF: 12 Casodex 50 mg PO DAILY RF: 0 Voltaren 75 mg PO BID RF: 0 Zytiga 250 mg PO DAILY RF: 0 Allergy Relief (fluticasone) 50 mcg NOSTRIL-B DAILY RF: 0 latanoprost 125 mcg eye-both DAILY RF: 0 Changed albuterol sulfate 2.5 mg nebulizer TID PRN (Reason: wheezing) 30 Days Qty: 10 RF: 0 Discharge Orders: Discharge Order (Routine); Ordered 01/04/20 Ordered By: Tyron Dimas Referrals: [facility] [Outside] Eric Michael [Primary Care Provider] - 01/10/20 11:00 am Discharge Diet: Regular Discharge Activity: Resume usual activity Patient Instructions: Furosemide (By mouth), Levofloxacin (By mouth), Hospice Care (GEN) Discharge Attestations Time Spent in Discharge Care*: less than 30 min Quality Metrics Clinical Quality Measures During this hospital stay, did patient experience: None Coding Level of Care Code 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
--- NOTE | 2020-01-04 17:28 | PC.RESP ---
Pulmonary Rehab outpatient brochure sent to patient post discharge.
== END 2020-01-04 14:38 | disposition hospice, home (50) | DRG 175 ==
LOC: ER 22:20 → MEDSURG 01-02 07:03
PROVIDERS: Emergency Medicine; Family Medicine; Admitting Provider Internal Medicine; Emergency Provider Emergency Medicine; Family Provider Physician Assistant Medical; PCP Physician Assistant Medical; Visit Provider Family Medicine
DX: I26.99 Other pulmonary embolism without acute cor pulmonale (principal); I50.31 Acute diastolic (congestive) heart failure; J18.9 Pneumonia, unspecified organism; C78.7 Secondary malignant neoplasm of liver and intrahepatic bile duct; C79.51 Secondary malignant neoplasm of bone; E87.2 Acidosis; J44.0 Chronic obstructive pulmonary disease with (acute) lower respiratory infection; N17.9 Acute kidney failure, unspecified; Z66 Do not resuscitate; D69.6 Thrombocytopenia, unspecified; C61 Malignant neoplasm of prostate; R59.1 Generalized enlarged lymph nodes; Z99.81 Dependence on supplemental oxygen; Z87.891 Personal history of nicotine dependence
CPT/HCPCS: 12345; 36415; 36600; 71045; 71275; 73590; 74177; 76700; 76705; 80053; 81001; 82803; 83605; 83880; 84132; 84145; 84153; 84443; 84484; 85007; 85025; 85378; 85610; 87040; 87086; 93005; 93306; 93971; 94640; 96372; 96374; 96375; 97110; 97116; 97162; 97530; 99283; J1650; J2270; J2405; J2543; J2930; J3370; J7050; Q9967